=== PATIENT | female | born 1965 | race Caucasian/White ===

== ENCOUNTER 2016-11-05 20:01 | Emergency (ER) | payer OTHER ==
[2016-11-05 20:17] VITALS: BP 157/72; PULSE 92; TEMP 98.1; BMI 46.8
--- NOTE | 2016-11-05 21:04 | PDOC ---
History of Present Illness - History of Present Illness Initial Comments: 11/05/16 20:55 CHIEF COMPLAINT: laceration HISTORY OF PRESENT ILLNESS: 50 yo F with hx of DM, HTN and HLD presents to fast track with laceration to left foot. Patient reports she was cleaning her garage when a wine bottle fell and broke, and hit her ankle and cut it. PAST MEDICAL HISTORY: Denies past medical history FAMILY HISTORY: Denies SOCIAL HISTORY: Denies tobacco, alcohol, illicit drug use. SURGICAL HISTORY: Denies ALLERGIES: No known drug allergies REVIEW OF SYSTEMS General/Constitutional: Denies fever or chills. Cardiovascular: Denies chest pain or shortness of breath. Respiratory: Denies cough, wheezing, or hemoptysis. Musculoskeletal: Denies joint or muscle swelling or pain. Denies neck or back pain. Skin and breasts: Cut to left ankle. Denies rash or easy bruising. PHYSICAL EXAM General Appearance: Well-appearing, appropriately dressed. No apparent distress. HEENT: EOMI, PERRLA. No conjunctival pallor. No photophobia, scleral icterus. Respiratory/Chest: Lungs CTAB. Cardiovascular: RRR. S1, S2. Vascular Pulses: Dorsalis-Pedis (R): 2+, Dorsalis-Pedis (L): 2+ Musculoskeletal/Extremities: Normal inspection. FROM of all extremities, normal capillary refill. No tenderness to extremities, pedal edema, swelling, erythema or deformity. Integumentary: 5 cm laceration to medial left ankle. Appropriate color, dry, warm. No cyanosis, erythema, jaundice or rash Neurologic: field representatives director II-XII intact. Fully oriented, alert. Appropriate mood/affect. Motor strength 5/5. No appreciable EOM palsy, facial droop or sensory deficit. 11/05/16 22:09 <Shanti Gann - Last Filed: 11/07/16 13:54> <Earnest Calhoun - Last Filed: 11/08/16 19:39> - General Chief Complaint: Laceration Stated Complaint: LACERATION Time Seen by Provider: 11/05/16 20:49 Past History - Past Medical History Diabetes: Yes HTN: Yes Hypercholesterolemia: Yes - Immunization History Immunization Up to Date: Yes - Psycho/Social/Smoking Cessation Hx Anxiety: No Suicidal Ideation: No Smoking History: Never smoked Have you smoked in the past 12 months: No Information on smoking cessation initiated: No Hx Alcohol Use: No Drug/Substance Use Hx: No Substance Use Type: None <Shanti Gann - Last Filed: 11/07/16 13:54> <Earnest Calhoun - Last Filed: 11/08/16 19:39> - Past Medical History Allergies/Adverse Reactions: Allergies Allergy/AdvReac Type Severity Reaction Status Date / Time No Known Allergies Allergy Verified 11/05/16 20:11 Home Medications: Ambulatory Orders Benazepril/Hydrochlorothiazide [Benazepril-Hctz 20-12.5 mg Tab] 1 each PO DAILY 03/27/13 Metformin HCl [Glucophage -] 500 mg PO BID 03/27/13 Metoprolol Tartrate [Lopressor -] 25 mg PO DAILY 03/27/13 Simvastatin [Zocor] 20 mg PO HS 03/27/13 Oxycodone HCl/Acetaminophen [Percocet 5-325 mg Tablet] 1 - 2 tab PO Q4H PRN #24 tablet MDD 12 08/09/15 Cephalexin [Keflex] 500 mg PO BID #14 capsule 11/05/16 *Physical Exam - Vital Signs Last Vital Signs Temp Pulse Resp BP Pulse Ox 98.1 F 92 H 20 157/72 97 11/05/16 20:11 11/05/16 20:11 11/05/16 20:11 11/05/16 20:11 11/05/16 20:11 <Shanti Gann - Last Filed: 11/07/16 13:54> - Vital Signs Last Vital Signs Temp Pulse Resp BP Pulse Ox 98.1 F 92 H 20 157/72 97 11/05/16 20:11 11/05/16 20:11 11/05/16 20:11 11/05/16 20:11 11/05/16 20:11 <Earnest Calhoun - Last Filed: 11/08/16 19:39> Procedures - Laceration/Wound Repair Left Anterior Medial Ankle Wound Length: 5.0 to 7.5 cm Wound Explored: clean, no foreign body present Wound's Depth, Shape: superficial, linear Irrigated w/ Saline: Yes Betadine Prep: Yes Anesthesia: 1% Lidocaine Amount of Anesthetic (ccs): 2 Wound Debrided: minimal Wound Repaired With: Sutures Suture Size/Type: 3:0, nylon Number of Sutures: 8 Layer Closure: Yes Sterile Dressing Applied: Yes Splint Applied: No Sling Applied: No <Gianni Calhounson - Last Filed: 11/08/16 19:39> ED Treatment Course - RADIOLOGY Radiology Studies Ordered: Category Date Time Status ANKLE & FOOT-LEFT* [RAD] Stat Radiology 11/05/16 20:53 Ordered <SanjunaitaShanti - Last Filed: 11/07/16 13:54> - Medications Given in the ED: ED Medications Discontinued Medications Generic Name Dose Route Start Last Admin Trade Name Liu PRN Reason Stop Dose Admin Diphtheria/Tetanus/Acell Pertussis 0.5 ml 11/05/16 22:02 11/05/16 22:12 Boostrix - IM 11/05/16 22:03 0.5 ml .ONCE ONE Administration <Earnest Calhoun - Last Filed: 11/08/16 19:39> Medical Decision Making - Medical Decision Making 50 yo F presents to fast track with laceration to left medial stubbs. Full ROM to left leg, foot, and ankle. Pulses intact. -Tdap IM -laceration repair (performed by MD Calhoun, see procedure note) Advised patient of post laceration repair instructions and of signs and symptoms for return to ER. Patient verbalized understanding and agrees to plan. <Shanti Gann - Last Filed: 11/07/16 13:54> *DC/Admit/Observation/Transfer - Discharge Dispostion Admit: No <Shanti Gann - Last Filed: 11/07/16 13:54> <Earnest Calhoun - Last Filed: 11/08/16 19:39> Diagnosis at time of Disposition: Laceration of ankle Qualifiers: Encounter type: initial encounter Laterality: left Qualified Code(s): S91.012A - Laceration without foreign body, left ankle, initial encounter - Discharge Dispostion Disposition: HOME - Prescriptions Prescriptions: Cephalexin [Keflex] 500 mg PO BID #14 capsule - Referrals Referrals: Maurice Linton MD [Primary Care Provider] - - Patient Instructions Printed Discharge Instructions: DI for Laceration Repair Additional Instructions: Please take antibiotics as prescribed and complete the entire course of antibiotics. Please keep your ankle clean and dry for the next 24-48 hours. Return to fast track or go to your primary care provider in 10-14 days for suture removal. If you develop redness, swelling, or warmth to your ankle, or you experience fever, chills, nausea, vomiting, or diarrhea, please return to the ER immediately. Por favor, tome los antibiticos segn lo prescrito y complete el curso completo de los antibiticos. Por favor, mantenga lubin tobillo limpio y seco dany las siguientes 24-48 horas. Vuelva a la wilfredo de emergencia o vaya a Dr. Linton en 10-14 warren para la eliminacin de sutura. Si desarrolla enrojecimiento, hinchazn o calor en el tobillo, o siente fiebre, escalofros, n useas, vmitos o diarrea, por favor regrese inmediatamente a la wilfredo de emergencias. Print Language: MOLDOVAN
[2016-11-05] MEDS ORDERED: DIPHTH,PERTUSS(ACELL),TET 0.5 ML DISP.SYRIN IM ONE (22:02)
== END 2016-11-05 22:37 | disposition home or self-care (01) ==
LOC: JER 20:01 → JERFT 20:01
PROC: 3E0337Z Introduction of Electrolytic and Water Balance Substance into Peripheral Vein, Percutaneous Approach (ICD-10-PCS; principal; 2016-11-05)
DX: S91.012A Laceration without foreign body, left ankle, initial encounter (principal); W25.XXXA Contact with sharp glass, initial encounter; Y93.E9 Activity, other interior property and clothing maintenance; Y92.015 Private garage of single-family (private) house as the place of occurrence of the external cause; I10 Essential (primary) hypertension; E11.9 Type 2 diabetes mellitus without complications; E78.00 Pure hypercholesterolemia, unspecified; G30.9 Alzheimer's disease, unspecified; F02.80 Dementia in other diseases classified elsewhere, unspecified severity, without behavioral disturbance, psychotic disturbance, mood disturbance, and anxiety
CPT/HCPCS: 73610-TC-LT; 73630-TC-LT; 90715; 96360; 96361; 99281-25

== ENCOUNTER 2016-11-13 18:25 | Emergency (ER) | payer OTHER ==
[2016-11-13 18:41] VITALS: BP 161/97; PULSE 86; TEMP 98.1; BMI 43.9
--- NOTE | 2016-11-13 19:27 | PDOC ---
Suture Removal/Wound Check HPI - History of Present Illness Chief Complaint: Suture/Staple Removal(Here) Stated Complaint: STAPLE/SUTURE REMOVAL Time Seen by Provider: 11/13/16 18:54 History Source: Yes: Patient Exam Limitations: Yes: No Limitations Treated at: [facility] Date of Last ED visit: 11/05/16 - Previous ED Treatment Type of procedure performed on last visit: Yes: Laceration Repair Tetanus Immunization: Yes: Up to Date Antibiotics Prescribed: Yes Past History - Past Medical History Allergies/Adverse Reactions: Allergies No Known Allergies Allergy (Verified 11/13/16 18:38) Home Medications: Ambulatory Orders Benazepril/Hydrochlorothiazide [Benazepril-Hctz 20-12.5 mg Tab] 1 each PO DAILY 03/27/13 Metformin HCl [Glucophage -] 500 mg PO BID 03/27/13 Metoprolol Tartrate [Lopressor -] 25 mg PO DAILY 03/27/13 Simvastatin [Zocor] 20 mg PO HS 03/27/13 - Immunization History Immunizations Up to Date: Yes - Social History Smoking Status: Never smoked Suture Removal/Wound Check PE - Physical Exam Laceration/Wound Check Symptoms: reports: None Current Severity Level: None Maximum Severity Level: None Pain Localization: None *Review of Systems - Review of Systems Constitutional: No: Symptoms Reported Integumentary: Yes: Erythema (localized suture irritation. Wound edges are turned in. ), Other (no pain) Neurological: No: Symptoms reported, Paresthesia, Tingling, Tremors Hematologic/Lymphatic: No: Symptoms Reported All Other Systems: Reviewed and Negative Medical Decision Making - Medical Decision Making 11/13/16 19:30 8 sutures are removed from right medial ankle, there is localized suture irritation but there is no pustulant discharge wound edges were slightly turned in sutures removed wound is intact however I placed a thin layer of dermabond with steri strips because it is a high tension area. Patient told to leave area clean and dry. Area may open with high tension. Follow up as needed. *DC/Admit/Observation/Transfer Diagnosis at time of Disposition: Visit for suture removal - Discharge Dispostion Disposition: HOME Condition at time of disposition: Good Admit: No - Referrals Referrals: Maurice Linton MD [Primary Care Provider] - - Patient Instructions Additional Instructions: PLease keep area clean and dry for the next two days, take off band aid tomorrow. Please leave steri strips tape on until it falls off on its own. If area opens return to the ER. - Post Discharge Activity
== END 2016-11-13 19:45 | disposition home or self-care (01) ==
LOC: JERFT 18:25
DX: Z48.02 Encounter for removal of sutures (principal)
CPT/HCPCS: 99281-25

== ENCOUNTER 2016-11-17 17:35 | Emergency (ER) | payer OTHER ==
[2016-11-17 17:43] VITALS: BP 152/83; PULSE 90; TEMP 98.2; BMI 51.5
--- NOTE | 2016-11-17 18:18 | PDOC ---
*Physical Exam - Vital Signs Last Vital Signs Temp Pulse Resp BP Pulse Ox 98.2 F 90 18 152/83 100 11/17/16 17:40 11/17/16 17:40 11/17/16 17:40 11/17/16 17:40 11/17/16 17:40 - Physical Exam General Appearance: Yes: Appropriately Dressed, Apparent Distress Extremity: positive: Other (wound impoved from previous vist; applied steristrips; floyd applied) *DC/Admit/Observation/Transfer Diagnosis at time of Disposition: Encounter for wound re-check - Discharge Dispostion Disposition: HOME Condition at time of disposition: Stable Admit: No - Patient Instructions Additional Instructions: return in 3 days for reevaluation
== END 2016-11-17 18:21 | disposition home or self-care (01) ==
LOC: JERFT 17:35
DX: Z48.01 Encounter for change or removal of surgical wound dressing (principal)
CPT/HCPCS: 99281-25

== ENCOUNTER 2017-06-15 13:46 | Emergency (ER) | payer OTHER ==
[2017-06-15 13:52] VITALS: BMI 47.5
[2017-06-15] MEDS ORDERED: ONDANSETRON 4 MG/2 ML VIAL IVPB ONE (14:27)
[2017-06-15] MEDS ORDERED: MAG HYDROX/AL HYDROX/SIMETH 30 ML UNIT-DOSE CUP PO ONE (14:27)
[2017-06-15] MEDS ORDERED: MAG HYDROX/AL HYDROX/SIMETH 30 ML UNIT-DOSE CUP ONE (14:34)
[2017-06-15] MEDS ORDERED: ONDANSETRON 4 MG/2 ML VIAL ONE (14:35)
[2017-06-15 15:02] LABS: BASO % 0.5 % (0-2.0); EOS % 2.3 % (0-4.5); HEMATOCRIT 40.4 % (32.4-45.2); HEMOGLOBIN 13.9 GM/dL (10.7-15.3); LYMPH % 37.9 % (8-40); MCH 31.6 pg (25.7-33.7); MCHC 34.4 g/dl (32.0-36.0); MEAN CELL VOLUME 91.9 fl (80-96); MEAN PLT VOLUME 7.3 fl (7.5-11.1); MONO % 7.8 % (3.8-10.2); NEUT % 51.5 % (42.8-82.8); PLATELET COUNT 277 K/MM3 (134-434); RBC 4.39 M/mm3 (3.60-5.2); WHITE BLOOD COUNT 5.4 K/mm3 (4.0-10.0)
[2017-06-15 15:04] LABS: URINE APPEARANCE CLOUDY; URINE BILIRUBIN NEGATIVE (NEGATIVE); URINE BLOOD NEGATIVE (NEGATIVE); URINE COLOR YELLOW; URINE GLUCOSE (UA) NEGATIVE (NEGATIVE); URINE KETONE NEGATIVE (NEGATIVE); URINE LEUK ESTERASE NEGATIVE (NEGATIVE); URINE NITRITE NEGATIVE (NEGATIVE); URINE PROTEIN NEGATIVE (NEGATIVE); URINE UROBILINOGEN NEGATIVE mg/dL (0.2-1.0)
[2017-06-15] MEDS ORDERED: KETOROLAC TROMETHAMINE 15 MG/ML VIAL IVPUSH ONE (15:13)
[2017-06-15 15:26] LABS: ALBUMIN 3.5 g/dl (3.4-5.0); ANION GAP 10 (8-16); BILIRUBIN,TOTAL 0.3 mg/dL (0.2-1.0); BLOOD UREA NITROGEN 10 mg/dL (7-18); CALCIUM 8.4 mg/dL (8.5-10.1); CHLORIDE 105 mmol/L (98-107); CO2 28 mmol/L (21-32); CREATININE 0.5 mg/dL (0.55-1.02); GLUCOSE,RANDOM 102 mg/dL (74-106); POTASSIUM 3.8 mmol/L (3.5-5.1); SGOT/AST 36 U/L (15-37); SGPT/ALT 73 U/L (12-78); SODIUM 143 mmol/L (136-145); TOT PROT 7.3 g/dl (6.4-8.2)
[2017-06-15 15:28] LABS: ALK PHOS 107 U/L (45-117)
[2017-06-15] MEDS ORDERED: RANITIDINE HCL 150 MG TABLET (FP) PO ONE (15:35)
--- NOTE | 2017-06-15 15:35 | PDOC ---
Attending Attestation - Resident Resident Name: Danny Subramanian - ED Attending Attestation I have performed the following: I have examined & evaluated the patient, The case was reviewed & discussed with the resident, I agree w/resident's findings & plan, Exceptions are as noted - HPI HPI: 06/15/17 15:33 51-year-old female status post cholecystectomy presents to the ER with atraumatic right upper quadrant and epigastric pain associated with nausea for the past week. Patient denies chest pain/fever/chills/diarrhea/dysuria/ hematuria. - Physicial Exam PE: 06/15/17 15:33 Patient is awake and alert, afebrile, hemodynamically stable Patient is obese; Normocephalic, atraumatic PERRLA, EOMI, no scleral icterus mmm cta rrr sft, nondistended, mild right upper quadrant/epigastric tenderness to palpation without guarding rebound; bowel sounds are normal in all 4 quadrants No lower extremity edema - Medical Decision Making 06/15/17 15:34 51-year-old female status post cholecystectomy presents with atraumatic right upper quadrant and epigastric pain. Differential diagnoses includes fatty liver versus retained stone versus pancreatitis versus gastritis. We'll obtain CBC/CMP /lipase/right upper quadrant ultrasound. Will hydrate, we'll administer GI cocktail, will reassess.
--- NOTE | 2017-06-15 15:42 | PDOC ---
History of Present Illness - General Chief Complaint: Pain Stated Complaint: Abd pain, nausea Time Seen by Provider: 06/15/17 14:08 History Source: Patient Exam Limitations: Language Barrier - History of Present Illness Initial Comments: 06/15/17 15:44 51yo F with hx of DM, HTN and HLD, s/p cholecystectomy presents with RUQ pain, nausea, associated with meals for the past week. Denies vomiting, chest pain, dysuria, constipation, diarrhea. Past History - Past Medical History Allergies/Adverse Reactions: Allergies Allergy/AdvReac Type Severity Reaction Status Date / Time No Known Allergies Allergy Verified 06/15/17 13:52 Home Medications: Ambulatory Orders Benazepril HCl [Lotensin] 40 mg PO DAILY 06/15/17 Metformin HCl 500 mg PO DAILY 06/15/17 Omeprazole 20 mg PO DAILY 06/15/17 Simvastatin 40 mg PO DAILY 06/15/17 COPD: No Diabetes: Yes HTN: Yes Hypercholesterolemia: Yes - Immunization History Immunization Up to Date: Yes - Suicide/Smoking/Psychosocial Hx Smoking History: Never smoked Have you smoked in the past 12 months: No Information on smoking cessation initiated: No Hx Alcohol Use: No Drug/Substance Use Hx: No Substance Use Type: None Review of Systems - Review of Systems Able to Perform ROS?: Yes Is the patient limited Georgian proficient: No Constitutional: No: Symptoms Reported, Unintentional Wgt. Loss HEENTM: No: Symptoms Reported Respiratory: No: Symptoms reported Cardiac (ROS): No: Symptoms Reported ABD/GI: Yes: See HPI : No: Symptoms Reported Musculoskeletal: No: Symptoms Reported Integumentary: No: Symptoms Reported Neurological: No: Symptoms reported All Other Systems: Reviewed and Negative *Physical Exam - Vital Signs Last Vital Signs Temp Pulse Resp BP Pulse Ox 98.1 F 85 19 126/65 100 06/15/17 13:51 06/15/17 13:51 06/15/17 13:51 06/15/17 13:51 06/15/17 13:51 - Physical Exam General Appearance: Yes: Nourished, Appropriately Dressed, Mild Distress, Obese. No: Intoxicated HEENT: positive: EOMI, SONIDO, Normal ENT Inspection Respiratory/Chest: positive: Lungs Clear, Normal Breath Sounds. negative: Chest Tender, Respiratory Distress Cardiovascular: positive: Regular Rhythm, Regular Rate, S1, S2 Gastrointestinal/Abdominal: positive: Normal Bowel Sounds, Tender, Soft, Protuberent. negative: Guarding, Rebound Extremity: positive: Normal Capillary Refill, Normal Inspection, Normal Range of Motion Integumentary: positive: Normal Color, Dry, Warm Neurologic: positive: Fully Oriented, Alert, Normal Mood/Affect ED Treatment Course - LABORATORY CBC & Chemistry Diagram: 06/15/17 14:45 06/15/17 14:45 - ADDITIONAL ORDERS Additional order review: Laboratory Results 06/15/17 06/15/17 06/15/17 14:45 14:45 14:45 Sodium 143 Potassium 3.8 Chloride 105 Carbon Dioxide 28 Anion Gap 10 BUN 10 Creatinine 0.5 L Creat Clearance w eGFR > 60 Random Glucose 102 Calcium 8.4 L Total Bilirubin 0.3 D AST 36 ALT 73 Alkaline Phosphatase 107 Creatine Kinase 99 Troponin I 0.02 Total Protein 7.3 Albumin 3.5 Lipase 106 Urine Color Yellow Urine Appearance Cloudy Urine pH 8.0 D Ur Specific Pratt 1.017 Urine Protein Negative Urine Glucose (UA) Negative Urine Ketones Negative Urine Blood Negative Urine Nitrite Negative Urine Bilirubin Negative Urine Urobilinogen Negative Ur Leukocyte Esterase Negative 06/15/17 14:45 RBC 4.39 MCV 91.9 MCHC 34.4 RDW 13.0 MPV 7.3 L Neutrophils % 51.5 D Lymphocytes % 37.9 D Monocytes % 7.8 Eosinophils % 2.3 Basophils % 0.5 - RADIOLOGY Radiology Studies Ordered: Category Date Time Status ABDOMEN US -LIMITED [US] Stat Ultrasound 06/15/17 14:41 Ordered - Medications Given in the ED: ED Medications Discontinued Medications Generic Name Dose Route Start Last Admin Trade Name Freq PRN Reason Stop Dose Admin Al Hydroxide/Mg Hydroxide 30 ml 06/15/17 14:27 06/15/17 14:58 Mylanta Oral Suspension - PO 06/15/17 14:28 30 ml ONCE ONE Administration Ondansetron HCl 8 mg 06/15/17 14:27 06/15/17 14:58 Zofran Injection IVPB 06/15/17 14:28 8 mg ONCE ONE Administration Medical Decision Making - Medical Decision Making 06/15/17 15:57 51F with pmh of gallstones s/p cholecystectomy presenting with RUQ pain. Differential diagnoses includes fatty liver versus retained stone versus pancreatitis versus gastritis. We'll obtain CBC/CMP/lipase/right upper quadrant ultrasound. Will hydrate, we'll administer GI cocktail, will reassess. Labs within normal limits. 06/15/17 16:01 ULtrasound findings positive for fatty liver disease. Will d/c with follow up. *DC/Admit/Observation/Transfer Diagnosis at time of Disposition: Fatty liver disease, nonalcoholic - Discharge Dispostion Disposition: HOME Condition at time of disposition: Improved Admit: No - Referrals Referrals: Maurice Linton MD [Primary Care Provider] - - Patient Instructions Printed Discharge Instructions: Nonalcoholic Fatty Liver Disease Additional Instructions: Follow up appointment with Dr. Linton within 2-3 days. Come back to the ER for any new, worsening or concerning symptoms. Print Language: ENGLISH - Post Discharge Activity
[2017-06-15] MEDS ORDERED: RANITIDINE HCL 150 MG TABLET (FP) ONE (15:43)
[2017-06-15] MEDS ORDERED: KETOROLAC TROMETHAMINE 15 MG/ML VIAL ONE (15:43)
[2017-06-15 16:58] VITALS: BP 118/64; PULSE 75; TEMP 97.8
--- NOTE | 2017-06-15 22:04 | EKG ---
Test Reason : Blood Pressure : / mmHG Vent. Rate : 079 BPM Atrial Rate : 079 BPM P-R Int : 158 ms QRS Dur : 100 ms QT Int : 420 ms P-R-T Axes : 029 010 052 degrees QTc Int : 481 ms NORMAL SINUS RHYTHM NONSPECIFIC T WAVE ABNORMALITY PROLONGED QT ABNORMAL ECG WHEN COMPARED WITH ECG OF 14-JUL-2013 02:27, NO SIGNIFICANT CHANGE WAS FOUND Confirmed by WALTER CHEN MD ([id number]) on 06/15/2017 10:03:58 PM Referred By: Confirmed By:WALTER CHEN MD
== END 2017-06-15 16:58 | disposition home or self-care (01) ==
LOC: JER 13:46
PROC: 3E0333Z Introduction of Anti-inflammatory into Peripheral Vein, Percutaneous Approach (ICD-10-PCS; principal; 2017-06-15)
PROC: 3E033GC Introduction of Other Therapeutic Substance into Peripheral Vein, Percutaneous Approach (ICD-10-PCS; 2017-06-15)
DX: K76.0 Fatty (change of) liver, not elsewhere classified (principal); E11.9 Type 2 diabetes mellitus without complications; I10 Essential (primary) hypertension; E78.5 Hyperlipidemia, unspecified
CPT/HCPCS: 36415; 76705-TC; 80053; 81003; 82550; 83690; 84484; 85025; 93005; 93010; 99284-25

== ENCOUNTER 2018-06-23 03:46 | Emergency (ER) | payer OTHER ==
[2018-06-23 03:54] VITALS: BP 152/88; PULSE 73; TEMP 97.6; BMI 45.3
--- NOTE | 2018-06-23 04:01 | PDOC ---
History of Present Illness - General Chief Complaint: Psychiatric Stated Complaint: NOT SLEEPING X 4 DAYS Time Seen by Provider: 06/23/18 03:53 History Source: Patient Exam Limitations: No Limitations - History of Present Illness Initial Comments: 06/23/18 04:00 Pt is a 52yo F with PMH of NIDDM, HTN presenting to ED with complaints of inability to sleep for 4 days. Pt states that she has only been sleeping about 2 hours per day. She has had this problem since September of last year and was started on a medication in December. The last time she took the medication was last month. Pt states her PMD stopped prescribing the medication due to addictive side effects. Pt says she has difficulty falling asleep and staying asleep. She only drinks one cup of coffee in the morning. She denies fevers, chills, SOB, chest pain, syncope, palpitations, abdominal pain, n/v/d, back pain , changes in vision. No SI/HI PMD: Royer PMH: see hpi PSH: , fibroidectomy, cholecystectomy Meds: metformin, benazepril Allergies: nkda Social: no tobacco or illicit drug use. occasional alcohol use Past History - Past Medical History Allergies/Adverse Reactions: Allergies Allergy/AdvReac Type Severity Reaction Status Date / Time No Known Allergies Allergy Verified 06/23/18 03:53 Home Medications: Ambulatory Orders Benazepril HCl [Lotensin] 40 mg PO DAILY 06/15/17 Omeprazole 20 mg PO DAILY 06/15/17 Simvastatin 40 mg PO DAILY 06/15/17 metFORMIN HCL [Metformin HCl] 500 mg PO BID 06/15/17 COPD: No Diabetes: Yes HTN: Yes Hypercholesterolemia: Yes - Immunization History Immunization Up to Date: Yes - Suicide/Smoking/Psychosocial Hx Smoking History: Never smoked Have you smoked in the past 12 months: No Information on smoking cessation initiated: No Hx Alcohol Use: No Drug/Substance Use Hx: No Substance Use Type: None Review of Systems - Review of Systems Constitutional: No: Chills, Fever HEENTM: No: Symptoms Reported Respiratory: No: Symptoms reported Cardiac (ROS): No: Symptoms Reported ABD/GI: No: Symptoms Reported : No: Symptoms Reported Musculoskeletal: No: Symptoms Reported Integumentary: No: Symptoms Reported Neurological: No: Symptoms reported Psychiatric: Yes: Sleep Pattern Change *Physical Exam - Vital Signs Last Vital Signs Temp Pulse Resp BP Pulse Ox 97.6 F 73 20 152/88 99 06/23/18 03:53 06/23/18 03:53 06/23/18 03:53 06/23/18 03:53 06/23/18 03:53 - Physical Exam General Appearance: Yes: Appropriately Dressed, Obese. No: Apparent Distress HEENT: positive: EOMI, SONIDO, Normal ENT Inspection Neck: positive: Trachea midline, Supple Respiratory/Chest: positive: Lungs Clear, Normal Breath Sounds Cardiovascular: positive: Regular Rhythm, Regular Rate Vascular Pulses: Carotid (R): 2+, Carotid (L): 2+, Dorsalis-Pedis (R): 2+, Doralis-Pedis (L): 2+ Gastrointestinal/Abdominal: positive: Normal Bowel Sounds, Soft. negative: Tender Musculoskeletal: negative: CVA Tenderness Extremity: positive: Normal Capillary Refill, Pelvis Stable. negative: Pedal Edema, Swelling Integumentary: positive: Normal Color, Dry, Warm Neurologic: positive: geosciences professor II-XII NML intact, Fully Oriented, Alert, Normal Mood/ Affect, Normal Response, Motor Strength 5/5 Moderate Sedation - Procedure Monitoring Vital Signs: Procedure Monitoring Vital Signs Temperature 97.6 F 06/23/18 03:53 Pulse Rate 73 06/23/18 03:53 Respiratory Rate 20 06/23/18 03:53 Blood Pressure 152/88 06/23/18 03:53 O2 Sat by Pulse Oximetry (%) 99 06/23/18 03:53 ED Treatment Course - LABORATORY CBC & Chemistry Diagram: 06/23/18 03:52 06/23/18 03:52 Medical Decision Making - Medical Decision Making 06/23/18 04:13 Pt is a 52yo F with PMH of NIDDM, HTN presenting to ED with complaints of inability to sleep for 4 days. Pt states that she has only been sleeping about 2 hours per day. She has had this problem since September of last year and was started on a medication in December. The last time she took the medication was last month. Pt states her PMD stopped prescribing the medication due to addictive side effects. Pt says she has difficulty falling asleep and staying asleep. She only drinks one cup of coffee in the morning. She denies fevers, chills, SOB, chest pain, syncope, palpitations, abdominal pain, n/v/d, back pain , changes in vision. Vitals: wnl PE: benign, obese. pt has insomnia, was taking a medication but does not remember the name. -cbc, cmp, tsh. Will likely have pt see pmd and get referral to sleep clinic 06/23/18 05:03 labs wnl. Will give number to sleep clinic. Advised pt to try melatonin. Pt otherwise stable. will dc *DC/Admit/Observation/Transfer Diagnosis at time of Disposition: Difficulty sleeping - Discharge Dispostion Disposition: HOME Condition at time of disposition: Good Decision to Admit order: No - Referrals Referrals: Maurice Linton MD [Staff Physician] - - Patient Instructions Printed Discharge Instructions: Insomnia Additional Instructions: You were seen in the emergency room today for difficulty sleeping. I do not know why you have problems with sleep. I recommend making an appointment with Dr. Linton so that you can be referred to a sleep clinic. Or you can call You can try taking Melatonin. This can be found in the vitamin section in most stores or pharmacies Do not drink coffee or alcohol before going to bed. Make sure you are in a quiet and dark room. Stop eating 2 hours before you plan on sleeping. Come back to the emergency room if you have chest pain, pass out, have fever, or if any new concerning symptom develops. Thank you - Post Discharge Activity
[2018-06-23 04:13] LABS: BASO % 0.4 % (0-2.0); EOS % 2.6 % (0-4.5); HEMATOCRIT 38.9 % (32.4-45.2); HEMOGLOBIN 13.6 GM/dL (10.7-15.3); LYMPH % 34.4 % (8-40); MCH 32.3 pg (25.7-33.7); MCHC 34.9 g/dl (32.0-36.0); MEAN CELL VOLUME 92.5 fl (80-96); MEAN PLT VOLUME 7.4 fl (7.5-11.1); MONO % 7.6 % (3.8-10.2); PLATELET COUNT 286 K/MM3 (134-434); RBC 4.21 M/mm3 (3.60-5.2); RDW 12.8 % (11.6-15.6); WHITE BLOOD COUNT 6.7 K/mm3 (4.0-10.0)
[2018-06-23 04:49] LABS: ALBUMIN 3.4 g/dl (3.4-5.0); ALK PHOS 93 U/L (45-117); ANION GAP 5 MMOL/L (8-16); BILIRUBIN,TOTAL 0.2 mg/dL (0.2-1); BLOOD UREA NITROGEN 12 mg/dL (7-18); CALCIUM 8.3 mg/dL (8.5-10.1); CHLORIDE 110 mmol/L (98-107); CO2 25 mmol/L (21-32); CREATININE 0.4 mg/dL (0.55-1.3); GLUCOSE,RANDOM 109 mg/dL (74-106); SGOT/AST 16 U/L (15-37); SGPT/ALT 29 U/L (13-61); SODIUM 140 mmol/L (136-145)
--- NOTE | 2018-06-23 04:59 | PDOC ---
Attending Attestation - Resident Resident Name: Liz Denise - ED Attending Attestation I have performed the following: I have examined & evaluated the patient, The case was reviewed & discussed with the resident, I agree w/resident's findings & plan, Exceptions are as noted - HPI HPI: 06/23/18 05:18 52F pmh DM, HTN here with insomnia for 4 days. Patient states that the problem has been persistent for about a year. Her PCP prescribed medication several months ago but it was discontinued by PCP due to concern of addiction. Pt has not had medication for about a month. She states that over the last 4 days she has not been able to stay asleep for longer than 2 hours. No other complaints. - Physicial Exam PE: 06/23/18 05:20 Agree with exam as documented by resident - Medical Decision Making 06/23/18 05:20 Patient is not toxic appearing, has normal mental status, alertness f/u basic labs unremarkable labs f/u pcp
== END 2018-06-23 05:15 | disposition home or self-care (01) ==
LOC: JER 03:46
DX: G47.00 Insomnia, unspecified (principal); E11.9 Type 2 diabetes mellitus without complications; I10 Essential (primary) hypertension
CPT/HCPCS: 36415; 80053; 84443; 85025; 99282-25

== ENCOUNTER 2019-02-08 05:07 | Emergency (ER) | payer OTHER ==
[2019-02-08 05:24] VITALS: BMI 42.0
[2019-02-08] MEDS ORDERED: ACETAMINOPHEN 1000 MG/100 ML VIAL (NON FORMULARY) IVPB ONE (05:49)
[2019-02-08] MEDS ORDERED: ACETAMINOPHEN INJECTION 100 ML IVPB ONE (05:49)
--- NOTE | 2019-02-08 05:51 | PDOC ---
Attending Attestation - Resident Resident Name: Earnest Calhoun - ED Attending Attestation I have performed the following: I have examined & evaluated the patient, The case was reviewed & discussed with the resident, I agree w/resident's findings & plan - HPI HPI: 02/08/19 06:56 see resident hpi - Physicial Exam PE: 02/08/19 06:58 agree with resident exam - Medical Decision Making 02/08/19 06:57 53-year-old female with left flank and left leg pain with history of sciatica, no new trauma Patient given Solu-Medrol and morphine Due to severe level of pain, [facility] [place] [facility] as needed Otherwise neurovascularly intact
--- NOTE | 2019-02-08 05:54 | PDOC ---
History of Present Illness - General Chief Complaint: Pain, Acute Stated Complaint: LEG PAIN Time Seen by Provider: 02/08/19 05:48 - History of Present Illness Initial Comments: 02/08/19 05:50 53 yo F with h/o morbid obesity, HTN, HLD, DM, who p/w left leg pain. Patient reports 3 days of intermittent, crampy, left, calf pain, with no identifiable triggers or alleviators. Patient also endorses 3 days of intermittent left posterior hip pain radiating to posterior left thigh. Pain worse with supine position. Reports home Motrin use, with no improvement. Patient denies MYERS, vision change, palpitations, cough, wheezing, orthopena, PND, leg swelling, N/V , F,C, CP, SOB, urinary complaints, hematuria, BPR, abdominal pain, diarrhea, constipation, lightheadedness, weakness, sensory changes. Denies h/o DVT/PE, recent trauma or immobilization, hormone therapy. Past History - Past Medical History Allergies/Adverse Reactions: Allergies Allergy/AdvReac Type Severity Reaction Status Date / Time No Known Allergies Allergy Verified 02/08/19 05:22 Home Medications: Ambulatory Orders Benazepril HCl [Lotensin] 40 mg PO DAILY 06/15/17 Omeprazole 20 mg PO DAILY 06/15/17 Simvastatin 40 mg PO DAILY 06/15/17 metFORMIN HCL [Metformin HCl] 500 mg PO BID 06/15/17 COPD: No Diabetes: Yes GI Disorders: Yes (GERD) HTN: Yes Hypercholesterolemia: Yes Psychiatric Problems: Yes (Insomnia) - Immunization History Immunization Up to Date: Yes - Psycho Social/Smoking Cessation Hx Smoking History: Never smoked Have you smoked in the past 12 months: No Information on smoking cessation initiated: No Hx Alcohol Use: No Drug/Substance Use Hx: No Substance Use Type: None Review of Systems - Review of Systems Comments:: 02/08/19 05:51 GENERAL/CONSTITUTIONAL: No fever or chills. No weakness. HEAD, EYES, EARS, NOSE AND THROAT: No change in vision. No ear pain or discharge. No sore throat. CARDIOVASCULAR: No chest pain or shortness of breath RESPIRATORY: No cough, wheezing, or hemoptysis. GASTROINTESTINAL: No nausea, vomiting, diarrhea or constipation. GENITOURINARY: No dysuria, frequency, or change in urination. MUSCULOSKELETAL: + L calf pain, and posterior thigh pain. No joint or muscle swelling. No neck or back pain. SKIN: No rash NEUROLOGIC: No headache, vertigo, loss of consciousness, or change in strength/ sensation. ENDOCRINE: No increased thirst. No abnormal weight change HEMATOLOGIC/LYMPHATIC: No anemia, easy bleeding, or history of blood clots. ALLERGIC/IMMUNOLOGIC: No hives or skin allergy. *Physical Exam - Vital Signs Last Vital Signs Temp Pulse Resp BP Pulse Ox 98.3 F 78 20 147/86 96 02/08/19 05:22 02/08/19 05:22 02/08/19 05:22 02/08/19 05:22 02/08/19 05:22 - Physical Exam Comments: 02/08/19 05:52 GENERAL: Awake, alert, and fully oriented, in no acute distress HEAD: No signs of trauma, normocephalic, atraumatic EYES: PERRLA, EOMI, sclera anicteric, conjunctiva clear ENT: Auricles normal inspection, hearing grossly normal, nares patent, oropharynx clear without exudates. Moist mucosa NECK: Normal ROM, supple, no lymphadenopathy, JVD, or masses LUNGS: No distress, speaks full sentences, clear to auscultation bilaterally HEART: Regular rate and rhythm, normal S1 and S2, no murmurs, rubs or gallops, peripheral pulses normal and equal bilaterally. ABDOMEN: Soft, nontender, normoactive bowel sounds. No guarding, no rebound. No masses EXTREMITIES : + L calf ttp. Normal inspection, Normal range of motion, no edema. No clubbing or cyanosis 2 + symmetric DP, and PT pulses. NEUROLOGICAL: Cranial nerves II through XII grossly intact. Normal speech, normal gait, no focal sensorimotor deficits. Neg straight leg raise test. Back with absent ttp, stepoff or bony SKIN: Warm, Dry, normal turgor, no rashes or lesions noted Medical Decision Making - Medical Decision Making 02/08/19 05:53 53 yo F with h/o morbid obesity, HTN, HLD, DM, sciatica, who p/w left leg pain. Exam notable for left calf ttp. Vitals wnl, AF, A&Ox3. LLE neurovascuarly intact. Absent evidence of arterial occlusion. R/o DVT. Hip RAD r/o dislocation vs. degeneration. Will provide analgesic control, and reassess. Ed Course: 02/08/19 06:39 Pt. stable pain improved following Tylenol, Morphine, Salumedrol Endorsed to day team Pending Duplex LLE, and Hip RAD Discharge - Discharge Information Problems reviewed: Yes Clinical Impression/Diagnosis: Pain of left calf Condition: Stable - Follow up/Referral Referrals: Maurice Linton MD [Primary Care Provider] - - Patient Discharge Instructions Additional Instructions: Please return to the emergency department with any new or worsening symptoms or concerns. Please follow up with your primary care physician within 72 hours. - Post Discharge Activity
[2019-02-08] MEDS ORDERED: KETOROLAC TROMETHAMINE 30 MG/1 ML VIAL IVPUSH ONE (06:24)
[2019-02-08] MEDS ORDERED: KETOROLAC TROMETHAMINE 30 MG/1 ML VIAL ONE (06:30)
[2019-02-08] MEDS ORDERED: morphine CARPU-JECT 4 MG/1 ML DISP.SYRIN IVPUSH ONE (06:35)
[2019-02-08] MEDS ORDERED: methylPREDNISolone NA SUCC 125 MG/2 ML VIAL IVPUSH ONE (06:36)
[2019-02-08] MEDS ORDERED: methylPREDNISolone NA SUCC 125 MG/2 ML VIAL ONE (06:38)
[2019-02-08] MEDS ORDERED: morphine SULFATE 4 MG/ML VIAL ONE (06:38)
--- NOTE | 2019-02-08 07:57 | PDOC ---
*Physical Exam - Vital Signs Last Vital Signs Temp Pulse Resp BP Pulse Ox 98.3 F 79 20 147/83 96 02/08/19 05:22 02/08/19 06:40 02/08/19 05:22 02/08/19 06:40 02/08/19 05:22 ED Treatment Course - ADDITIONAL ORDERS Additional order review: Laboratory Results 02/08/19 06:50 Urine HCG, Qual Negative - Medications Given in the ED: ED Medications Discontinued Medications Generic Name Dose Route Start Last Admin Trade Name Liu PRN Reason Stop Dose Admin Acetaminophen 1,000 mg 02/08/19 05:49 02/08/19 05:52 Ofirmev Injection - IVPB 02/08/19 05:50 1,000 mg ONCE ONE Administration Ketorolac Tromethamine 30 mg 02/08/19 06:24 02/08/19 06:42 Toradol Injection - IVPUSH 02/08/19 06:25 Not Given ONCE ONE Methylprednisolone Sodium Succinate 125 mg 02/08/19 06:36 02/08/19 06:49 Solu-Medrol - IVPUSH 02/08/19 06:37 125 mg ONCE ONE Administration Morphine Sulfate 4 mg 02/08/19 06:35 02/08/19 06:49 Morphine Injection - IVPUSH 02/08/19 06:36 4 mg ONCE ONE Administration Medical Decision Making - Medical Decision Making 02/08/19 07:[address] Calhoun. Patient is a 53 yo female w/ pmh of obesity, HTN, HLD, DM, who presents for evaluation of exacerbation of LLE pain over the last 3 days. Patient took motrin at home w/out improvement of symptoms. Currently pending LLE doppler and hip XR for further evaluation. 02/08/19 10:50 XR Hip negative for acute process. Patient ambulating without difficulty and reporting improvement of pain. US pending at this time. 02/08/19 11:18 US negative. No concern for acute process at this time and discharging to home for further outpatient follow-up. Discharge - Discharge Information Problems reviewed: Yes Clinical Impression/Diagnosis: Pain of left calf, Leg pain, left Condition: Stable Disposition: HOME - Additional Discharge Information Prescriptions: Naproxen 500 mg PO BID PRN #14 tablet PRN Reason: Pain - Follow up/Referral Referrals: Maurice Linton MD [Primary Care Provider] - - Patient Discharge Instructions Patient Printed Discharge Instructions: DI for Leg Pain Additional Instructions: You were evaluated today in the ER for your leg pain. We performed Xray and Ultrasound which were both normal. Your pain improved with medications and we sent a prescription to your pharmacy for further pain control. Take all medications as written. No concerning findings were found and we believe you are safe for discharge at this time. Follow-up with primary care provider for further evaluation later this week. Return to ER if any further exacerbation of leg pain, fever, chills, or other concerning symptoms. - Post Discharge Activity
[2019-02-08 08:03] LABS: EPI CELLS 0.5 /HPF (0-5/HPF); HYALINE CASTS 0 /lpf (0-8); URINE APPEARANCE TURBID; URINE BACTERIA 22.7 /hpf (NEGATIVE); URINE BILIRUBIN NEGATIVE (NEGATIVE); URINE COLOR YELLOW; URINE GLUCOSE (UA) NEGATIVE (NEGATIVE); URINE KETONE NEGATIVE (NEGATIVE); URINE LEUK ESTERASE NEGATIVE (NEGATIVE); URINE NITRITE NEGATIVE (NEGATIVE); URINE PROTEIN 2+ (NEGATIVE); URINE RBC 6 /hpf (0-4); URINE UROBILINOGEN 0.2 mg/dL (0.2-1.0); URINE WBC 0 /hpf (0-5)
[2019-02-08] MEDS ORDERED: IBUPROFEN 600 MG TABLET (FP) PO ONE (09:55)
[2019-02-08 11:23] VITALS: BP 138/78; PULSE 80; TEMP 98
== END 2019-02-08 11:23 | disposition home or self-care (01) ==
LOC: JER 05:07
PROC: 3E033NZ Introduction of Analgesics, Hypnotics, Sedatives into Peripheral Vein, Percutaneous Approach (ICD-10-PCS; principal; 2019-02-08)
PROC: 3E033GC Introduction of Other Therapeutic Substance into Peripheral Vein, Percutaneous Approach (ICD-10-PCS; 2019-02-08)
PROC: 3E033NZ Introduction of Analgesics, Hypnotics, Sedatives into Peripheral Vein, Percutaneous Approach (ICD-10-PCS; 2019-02-08)
DX: M79.622 Pain in left upper arm (principal); I10 Essential (primary) hypertension; E78.5 Hyperlipidemia, unspecified; E11.9 Type 2 diabetes mellitus without complications; K21.9 Gastro-esophageal reflux disease without esophagitis
CPT/HCPCS: 73523-TC-FY; 81003; 84703; 93971-TC; 99282-25; J0131

== ENCOUNTER 2020-07-04 16:43 | Emergency (ER) | payer OTHER ==
[2020-07-04 16:55] VITALS: TEMP 98.4; BMI 45.7
[2020-07-04] MEDS ORDERED: ACETAMINOPHEN 1000 MG/100 ML VIAL (NON FORMULARY) IVPB ONE (18:51)
[2020-07-04] MEDS ORDERED: MAG HYDROX/AL HYDROX/SIMETH 30 ML UNIT-DOSE CUP PO ONE (18:52)
[2020-07-04] MEDS ORDERED: LIDOCAINE VISCOUS 2% ORAL/TOP 20 ML UNIT-DOSE CUP MM ONE (18:52)
[2020-07-04] MEDS ORDERED: FAMOTIDINE 20 MG/50 ML IVPB 20 MG/50 ML MG IVPB ONE ×2 (18:52→19:21)
[2020-07-04] MEDS ORDERED: ACETAMINOPHEN INJECTION 100 ML IVPB ONE (19:21)
[2020-07-04] MEDS ORDERED: MAG HYDROX/AL HYDROX/SIMETH 30 ML UNIT-DOSE CUP ONE (19:21)
[2020-07-04] MEDS ORDERED: LIDOCAINE VISCOUS 2% ORAL/TOP 20 ML UNIT-DOSE CUP ONE (19:21)
[2020-07-04 20:22] LABS: BASO % 0.4 % (0-2.0); EOS % 1.8 % (0-4.5); HEMATOCRIT 40.4 % (32.4-45.2); HEMOGLOBIN 13.6 GM/dL (10.7-15.3); LYMPH % 25.6 % (8-40); MCH 31.3 pg (25.7-33.7); MCHC 33.7 g/dl (32.0-36.0); MEAN PLT VOLUME 8.6 fl (7.5-11.1); MONO % 7.4 % (3.8-10.2); NEUT % 64.8 % (42.8-82.8); PLATELET COUNT 254 K/MM3 (134-434); RBC 4.34 M/mm3 (3.60-5.2); RDW 13.9 % (11.6-15.6); WHITE BLOOD COUNT 7.5 K/mm3 (4.0-10.0)
[2020-07-04 20:39] LABS: POTASSIUM 3.7 mmol/L (3.5-5.1)
[2020-07-04 20:41] LABS: ALBUMIN 3.6 g/dl (3.4-5.0); CALCIUM 8.9 mg/dL (8.5-10.1)
[2020-07-04 20:42] LABS: BLOOD UREA NITROGEN 8.4 mg/dL (7-18)
[2020-07-04 20:45] LABS: CREATININE 0.4 mg/dL (0.55-1.3)
[2020-07-04 20:46] LABS: BILIRUBIN,TOTAL 0.6 mg/dL (0.2-1); TOT PROT 7.2 g/dl (6.4-8.2)
[2020-07-04 22:35] VITALS: BP 160/81; PULSE 80
== END 2020-07-04 22:35 | disposition home or self-care (01) ==
LOC: JER 16:43
PROC: 3E0333Z Introduction of Anti-inflammatory into Peripheral Vein, Percutaneous Approach (ICD-10-PCS; principal; 2020-07-04)
PROC: 3E033GC Introduction of Other Therapeutic Substance into Peripheral Vein, Percutaneous Approach (ICD-10-PCS; 2020-07-04)
DX: R10.13 Epigastric pain (principal)
CPT/HCPCS: 36415; 80053; 82550; 83690; 84484; 85025; 93005; 93010; 99284-25; J0131

== ENCOUNTER 2020-08-07 22:47 | Emergency (ER) | payer OTHER ==
[2020-08-07 22:59] VITALS: TEMP 98.6; BMI 43.9
[2020-08-08] MEDS ORDERED: ACETAMINOPHEN 325 MG TABLET (FP) PO ONE (00:10)
[2020-08-08] MEDS ORDERED: MAG HYDROX/AL HYDROX/SIMETH 30 ML UNIT-DOSE CUP PO ONE (00:10)
[2020-08-08] MEDS ORDERED: MAG HYDROX/AL HYDROX/SIMETH 30 ML UNIT-DOSE CUP ONE (00:25)
[2020-08-08] MEDS ORDERED: ACETAMINOPHEN 325 MG TABLET (FP) ONE (00:25)
[2020-08-08 01:01] LABS: EPI CELLS >36 /uL (0-25.1); HYALINE CASTS 17 /uL (0-3.1); URINE APPEARANCE CLOUDY; URINE BILIRUBIN NEGATIVE (NEGATIVE); URINE COLOR ORANGE; URINE GLUCOSE (UA) NEGATIVE (NEGATIVE); URINE KETONE NEGATIVE (NEGATIVE); URINE LEUK ESTERASE 3+ (NEGATIVE); URINE NITRITE POSITIVE (NEGATIVE); URINE PROTEIN 3+ (NEGATIVE); URINE WBC 468 /uL (0-25.8)
[2020-08-08] MEDS ORDERED: NITROFURANTOIN MACROCRYSTAL 50 MG CAPSULE (FP) ONE (01:26)
[2020-08-08] MEDS ORDERED: NITROFURANTOIN MACROCRYSTAL 50 MG CAPSULE (FP) PO SCH (01:30)
[2020-08-08 01:36] VITALS: BP 148/79; PULSE 92
[2020-08-08 03:08] LABS: URINE RBC 469 /uL (0-23.9)
== END 2020-08-08 01:38 | disposition home or self-care (01) ==
LOC: JER 22:47
DX: R30.0 Dysuria (principal)
CPT/HCPCS: 81003; 82962; 87086; 99283-25

== ENCOUNTER 2020-08-25 08:23 | Emergency (ER) | payer OTHER ==
[2020-08-25 08:28] VITALS: BMI 43.9
[2020-08-25] MEDS ORDERED: SODIUM CHLORIDE 1,000 ML IV STA (08:59)
[2020-08-25] MEDS ORDERED: FAMOTIDINE 20 MG/50 ML IVPB 20 MG/50 ML MG IVPB ONE ×2 (08:59→09:14)
[2020-08-25] MEDS ORDERED: DICYCLOMINE HCL 10 MG CAPSULE PO ONE (08:59)
[2020-08-25] MEDS ORDERED: ACETAMINOPHEN 1000 MG/100 ML BAG IVPB ONE (08:59)
[2020-08-25] MEDS ORDERED: ACETAMINOPHEN INJECTION 100 ML IVPB ONE (09:13)
[2020-08-25] MEDS ORDERED: DICYCLOMINE HCL 10 MG CAPSULE ONE (09:13)
[2020-08-25 09:32] LABS: BASO % 0.4 % (0-2.0); EOS % 2.4 % (0-4.5); HEMOGLOBIN 13.4 GM/dL (10.7-15.3); LYMPH % 27.6 % (8-40); MCH 31.2 pg (25.7-33.7); MCHC 33.6 g/dl (32.0-36.0); MEAN CELL VOLUME 92.8 fl (80-96); MEAN PLT VOLUME 8.3 fl (7.5-11.1); NEUT % 60.6 % (42.8-82.8); PLATELET COUNT 260 K/MM3 (134-434); RBC 4.31 M/mm3 (3.60-5.2); RDW 13.9 % (11.6-15.6); WHITE BLOOD COUNT 6.2 K/mm3 (4.0-10.0)
[2020-08-25 09:47] LABS: URINE APPEARANCE CLEAR; URINE BILIRUBIN NEGATIVE (NEGATIVE); URINE COLOR YELLOW; URINE GLUCOSE (UA) NEGATIVE (NEGATIVE); URINE KETONE NEGATIVE (NEGATIVE); URINE LEUK ESTERASE NEGATIVE (NEGATIVE); URINE NITRITE NEGATIVE (NEGATIVE); URINE PROTEIN TRACE (NEGATIVE); URINE UROBILINOGEN 0.2 mg/dL (0.2-1.0)
[2020-08-25 10:13] LABS: ALBUMIN 3.4 g/dl (3.4-5.0); BLOOD UREA NITROGEN 14.6 mg/dL (7-18); CALCIUM 8.9 mg/dL (8.5-10.1)
[2020-08-25 10:17] LABS: BILIRUBIN,TOTAL 0.4 mg/dL (0.2-1); CREATININE 0.5 mg/dL (0.55-1.3); TOT PROT 7.3 g/dl (6.4-8.2)
[2020-08-25 14:13] VITALS: BP 136/80; PULSE 69; TEMP 98
== END 2020-08-25 14:14 | disposition home or self-care (01) ==
LOC: JER 08:23
PROC: 3E0333Z Introduction of Anti-inflammatory into Peripheral Vein, Percutaneous Approach (ICD-10-PCS; principal; 2020-08-25)
PROC: 3E033GC Introduction of Other Therapeutic Substance into Peripheral Vein, Percutaneous Approach (ICD-10-PCS; 2020-08-25)
PROC: 3E0337Z Introduction of Electrolytic and Water Balance Substance into Peripheral Vein, Percutaneous Approach (ICD-10-PCS; 2020-08-25)
DX: R10.13 Epigastric pain (principal); K29.00 Acute gastritis without bleeding; K59.00 Constipation, unspecified
CPT/HCPCS: 36415; 74019-TC-FY; 74177-TC; 76705-TC; 80053; 81003; 83690; 85025; 87086; 99285-25; J0131; Q9967

== ENCOUNTER 2020-09-11 19:18 | Observation (INO) | payer OTHER ==
[2020-09-11] MEDS ORDERED: MAG HYDROX/AL HYDROX/SIMETH -MYLANTA- ORAL SUSPENSION PO ONE (19:59)
[2020-09-11] MEDS ORDERED: FAMOTIDINE 20 MG/50 ML IVPB 20 MG/50 ML MG IVPB ONE ×2 (19:59→20:11)
[2020-09-11] MEDS ORDERED: ONDANSETRON 4 MG/2 ML VIAL IVPUSH ONE (19:59)
[2020-09-11] MEDS ORDERED: LIDOCAINE VISCOUS 2% ORAL/TOP 20 ML UNIT-DOSE CUP MM ONE (19:59)
[2020-09-11] MEDS ORDERED: LIDOCAINE VISCOUS 2% ORAL/TOP 20 ML UNIT-DOSE CUP ONE (20:10)
[2020-09-11] MEDS ORDERED: MAG HYDROX/AL HYDROX/SIMETH 30 ML UNIT-DOSE CUP ONE (20:10)
[2020-09-11] MEDS ORDERED: ONDANSETRON 4 MG/2 ML VIAL ONE (20:11)
[2020-09-11 20:38] LABS: BASO % 0.7 % (0-2.0); EOS % 1.3 % (0-4.5); HEMATOCRIT 42.8 % (32.4-45.2); HEMOGLOBIN 13.9 GM/dL (10.7-15.3); LYMPH % 33.2 % (8-40); MCH 30.5 pg (25.7-33.7); MCHC 32.5 g/dl (32.0-36.0); MEAN CELL VOLUME 93.9 fl (80-96); MEAN PLT VOLUME 8.1 fl (7.5-11.1); MONO % 9.2 % (3.8-10.2); NEUT % 55.6 % (42.8-82.8); PLATELET COUNT 255 K/MM3 (134-434); RBC 4.56 M/mm3 (3.60-5.2); RDW 14.7 % (11.6-15.6); WHITE BLOOD COUNT 7.3 K/mm3 (4.0-10.0)
[2020-09-11] MEDS ORDERED: ACETAMINOPHEN 1000 MG/100 ML VIAL (NON FORMULARY) IVPB ONE (20:54)
[2020-09-11] MEDS ORDERED: ACETAMINOPHEN INJECTION 100 ML IVPB ONE (20:56)
[2020-09-11 21:05] LABS: ALBUMIN 3.6 g/dl (3.4-5.0); BLOOD UREA NITROGEN 16.5 mg/dL (7-18); CALCIUM 9.1 mg/dL (8.5-10.1); MAGNESIUM 2.2 mg/dL (1.8-2.4)
[2020-09-11 21:08] LABS: CREATININE 0.8 mg/dL (0.55-1.3)
[2020-09-11 21:09] LABS: BILIRUBIN,TOTAL 0.7 mg/dL (0.2-1)
[2020-09-11 21:10] LABS: TOT PROT 7.7 g/dl (6.4-8.2)
[2020-09-11] MEDS ORDERED: ASPIRIN 81 MG CHEWABLE TABLETS PO ONE (21:38)
[2020-09-11] MEDS ORDERED: ASPIRIN 81 MG CHEWABLE TABLETS ONE (21:47)
[2020-09-11] MEDS ORDERED: MORPHINE SULFATE 2 MG/ML VIAL IVPUSH ONE (22:42)
[2020-09-11] MEDS ORDERED: POLYETHYLENE GLYCOL 3350 119 GM BTL PO ONE (22:42)
[2020-09-11] MEDS ORDERED: DOCUSATE SODIUM 100 MG CAPSULE (FP) PO ONE ×2 (22:42→23:09)
[2020-09-11] MEDS ORDERED: MORPHINE SULFATE 2 MG/ML VIAL ONE (23:08)
[2020-09-11] MEDS ORDERED: POLYETHYLENE GLYCOL 3350 119 GM BTL PO PRN (23:11)
[2020-09-12] MEDS ORDERED: PANTOPRAZOLE SODIUM 40 MG VIAL ONE (00:34)
[2020-09-12] MEDS: PANTOPRAZOLE SODIUM 40 MG VIAL IVPUSH SCH ×3 (00:40→21:01)
[2020-09-12] MEDS: INSULIN SLIDING SCALE (NOVOLOG) 1 VIAL SQ SCH ×4 (06:53→21:11)
[2020-09-12 06:57] LABS: HEMATOCRIT 40.9 % (32.4-45.2); HEMOGLOBIN 13.4 GM/dL (10.7-15.3); MCHC 32.7 g/dl (32.0-36.0); MEAN CELL VOLUME 94.7 fl (80-96); MEAN PLT VOLUME 8.6 fl (7.5-11.1); PLATELET COUNT 233 K/MM3 (134-434); RBC 4.32 M/mm3 (3.60-5.2); RDW 14.5 % (11.6-15.6); WHITE BLOOD COUNT 6.5 K/mm3 (4.0-10.0)
[2020-09-12] MEDS ORDERED: INSULIN SLIDING SCALE (NOVOLOG) 1 VIAL SQ ONE (06:57)
[2020-09-12 07:27] LABS: CALCIUM 8.8 mg/dL (8.5-10.1)
[2020-09-12 07:28] LABS: ALBUMIN 3.3 g/dl (3.4-5.0); MAGNESIUM 2.5 mg/dL (1.8-2.4)
[2020-09-12 07:31] LABS: CREATININE 0.6 mg/dL (0.55-1.3); PHOSPHOROUS 5.9 mg/dL (2.5-4.9)
[2020-09-12 07:32] LABS: BILIRUBIN,TOTAL 0.7 mg/dL (0.2-1); TOT PROT 6.9 g/dl (6.4-8.2)
[2020-09-12 09:18] LABS: EPI CELLS 51.7 /uL (0-25.1); HYALINE CASTS 6.67 /uL (0-3.1); URINE APPEARANCE Clear; URINE BACTERIA 771.4 /uL (0-1359); URINE BILIRUBIN Negative (NEGATIVE); URINE COLOR Yellow; URINE GLUCOSE (UA) Negative (NEGATIVE); URINE KETONE Negative (NEGATIVE); URINE LEUK ESTERASE Negative (NEGATIVE); URINE NITRITE Negative (NEGATIVE); URINE PROTEIN 3+ (NEGATIVE); URINE RBC 13.7 /uL (0-23.9); URINE UROBILINOGEN 0.2 mg/dL (0.2-1.0); URINE WBC 18.3 /uL (0-25.8)
[2020-09-12] MEDS: DOCUSATE SODIUM 100 MG CAPSULE (FP) PO SCH ×2 (09:53→21:01)
[2020-09-12] MEDS: ENOXAPARIN NA (PORCINE) 40 MG/0.4 ML DISP.SYRIN SQ SCH ×2 (09:54→21:02)
[2020-09-12] MEDS: POLYETHYLENE GLYCOL 3350 119 GM BTL PO SCH ×2 (09:55→21:02)
[2020-09-12] MEDS ORDERED: ENOXAPARIN NA (PORCINE) 40 MG/0.4 ML DISP.SYRIN SQ SCH (10:00)
[2020-09-12] MEDS ORDERED: metFORMIN HCL 500 MG TABLET (FP) PO SCH (10:00)
[2020-09-12] MEDS ORDERED: LISINOPRIL 20 MG TABLET PO SCH (10:00)
[2020-09-12] MEDS ORDERED: PATIENT'S OWN MEDICATION (NON-FORMULARY) (Benazepril Hcl [Benazepril Hcl] 20 MG Tablet) PO SCH (10:00)
[2020-09-12 10:35] LABS: URINE RBC 10.2 /uL (0-23.9); URINE WBC 5.6 /uL (0-25.8)
[2020-09-12 10:36] LABS: EPI CELLS 18.6 /uL (0-25.1); HYALINE CASTS 1.02 /uL (0-3.1); URINE BACTERIA 198.8 /uL (0-1359)
[2020-09-12 10:38] LABS: PH,URINE 5.5 (5.0-8.0); URINE APPEARANCE CLEAR; URINE BILIRUBIN NEGATIVE (NEGATIVE); URINE COLOR YELLOW; URINE GLUCOSE (UA) NEGATIVE (NEGATIVE); URINE KETONE NEGATIVE (NEGATIVE); URINE PROTEIN 30 (NEGATIVE)
[2020-09-12 10:39] LABS: URINE LEUK ESTERASE NEGATIVE (NEGATIVE); URINE NITRITE NEGATIVE (NEGATIVE)
[2020-09-12] MEDS: ASPIRIN 81 MG CHEWABLE TABLETS PO SCH (14:51)
[2020-09-12] MEDS: metoPROLOL SUCCINATE 25 MG TAB.SR.24H (FP) PO SCH (14:51)
[2020-09-12] MEDS: ATORVASTATIN CA 20 MG TABLET (FP) PO SCH (21:01)
[2020-09-12] MEDS ORDERED: MELATONIN 5 MG TABLETS PO ONE (23:58)
[2020-09-13] MEDS: ACETAMINOPHEN 325 MG TABLET (FP) PO PRN (00:05)
[2020-09-13] MEDS: PANTOPRAZOLE SODIUM 40 MG VIAL IVPUSH SCH ×2 (01:24→09:12)
[2020-09-13] MEDS: INSULIN SLIDING SCALE (NOVOLOG) 1 VIAL SQ SCH ×4 (06:19→21:10)
[2020-09-13 06:43] LABS: HEMATOCRIT 41.3 % (32.4-45.2); HEMOGLOBIN 13.3 GM/dL (10.7-15.3); MCH 30.6 pg (25.7-33.7); MCHC 32.2 g/dl (32.0-36.0); MEAN CELL VOLUME 94.9 fl (80-96); MEAN PLT VOLUME 8.8 fl (7.5-11.1); PLATELET COUNT 234 K/MM3 (134-434); RBC 4.35 M/mm3 (3.60-5.2); RDW 14.5 % (11.6-15.6); WHITE BLOOD COUNT 7.1 K/mm3 (4.0-10.0)
[2020-09-13 07:03] LABS: CALCIUM 8.9 mg/dL (8.5-10.1)
[2020-09-13 07:05] LABS: BLOOD UREA NITROGEN 20.3 mg/dL (7-18)
[2020-09-13 07:07] LABS: ALBUMIN 3.4 g/dl (3.4-5.0)
[2020-09-13 07:10] LABS: BILIRUBIN,TOTAL 0.5 mg/dL (0.2-1); CREATININE 0.6 mg/dL (0.55-1.3); TOT PROT 7.3 g/dl (6.4-8.2)
[2020-09-13] MEDS: DOCUSATE SODIUM 100 MG CAPSULE (FP) PO SCH ×2 (09:10→21:05)
[2020-09-13] MEDS: ASPIRIN 81 MG CHEWABLE TABLETS PO SCH (09:10)
[2020-09-13] MEDS: metoPROLOL SUCCINATE 25 MG TAB.SR.24H (FP) PO SCH (09:10)
[2020-09-13] MEDS: POLYETHYLENE GLYCOL 3350 119 GM BTL PO SCH ×2 (09:11→21:07)
[2020-09-13] MEDS: ENOXAPARIN NA (PORCINE) 40 MG/0.4 ML DISP.SYRIN SQ SCH ×2 (09:11→21:06)
[2020-09-13] MEDS ORDERED: VALSARTAN 80 MG TABLET PO SCH (10:00)
[2020-09-13] MEDS ORDERED: CALCIUM CARBONATE 650 MG TABLET PO PRN (11:00)
[2020-09-13] MEDS: SPIRONOLACTONE 25 MG TABLET PO SCH (11:13)
[2020-09-13] MEDS: FAMOTIDINE 20 MG TABLET PO SCH ×2 (11:13→21:06)
[2020-09-13] MEDS: BISACODYL 10 MG SUPP.RECT PR ONE ×2 (16:37→18:30)
[2020-09-13] MEDS: FUROSEMIDE 40 MG/4 ML INJECTABLE VIAL IVPUSH SCH (18:04)
[2020-09-13] MEDS ORDERED: TRIMETHOBENZAMIDE HCL 300 MG CAPSULE PO ONE (19:19)
[2020-09-13] MEDS ORDERED: PT OWN MED DRAWER 7, Y5N ONE ×2 (20:08→21:01)
[2020-09-13] MEDS: ATORVASTATIN CA 20 MG TABLET (FP) PO SCH (21:06)
[2020-09-14 06:23] LABS: HEMATOCRIT 42.6 % (32.4-45.2); HEMOGLOBIN 14.1 GM/dL (10.7-15.3); MCH 31.1 pg (25.7-33.7); MEAN CELL VOLUME 94.3 fl (80-96); MEAN PLT VOLUME 8.7 fl (7.5-11.1); PLATELET COUNT 230 K/MM3 (134-434); RBC 4.52 M/mm3 (3.60-5.2); RDW 14.2 % (11.6-15.6); WHITE BLOOD COUNT 6.8 K/mm3 (4.0-10.0)
[2020-09-14] MEDS: INSULIN SLIDING SCALE (NOVOLOG) 1 VIAL SQ SCH ×4 (06:46→21:26)
[2020-09-14 06:47] LABS: CALCIUM 9.1 mg/dL (8.5-10.1)
[2020-09-14 06:48] LABS: ALBUMIN 3.5 g/dl (3.4-5.0); BLOOD UREA NITROGEN 18.7 mg/dL (7-18); MAGNESIUM 2.3 mg/dL (1.8-2.4)
[2020-09-14 06:51] LABS: CREATININE 0.5 mg/dL (0.55-1.3); PHOSPHOROUS 4.7 mg/dL (2.5-4.9)
[2020-09-14 06:52] LABS: BILIRUBIN,TOTAL 0.8 mg/dL (0.2-1); TOT PROT 7.2 g/dl (6.4-8.2)
[2020-09-14] MEDS: ACETAMINOPHEN 325 MG TABLET (FP) PO PRN (10:05)
[2020-09-14] MEDS: PANTOPRAZOLE SODIUM 40 MG VIAL IVPUSH SCH (10:05)
[2020-09-14] MEDS: ENOXAPARIN NA (PORCINE) 40 MG/0.4 ML DISP.SYRIN SQ SCH ×2 (10:06→21:13)
[2020-09-14] MEDS: DOCUSATE SODIUM 100 MG CAPSULE (FP) PO SCH ×2 (10:06→21:14)
[2020-09-14] MEDS: FUROSEMIDE 40 MG/4 ML INJECTABLE VIAL IVPUSH SCH (10:06)
[2020-09-14] MEDS: FAMOTIDINE 20 MG TABLET PO SCH ×2 (10:06→21:13)
[2020-09-14] MEDS: metoPROLOL SUCCINATE 25 MG TAB.SR.24H (FP) PO SCH (10:06)
[2020-09-14] MEDS: SPIRONOLACTONE 25 MG TABLET PO SCH (10:06)
[2020-09-14] MEDS: SACUBITRIL/VALSARTAN 24 MG-26 MG TABLET PO SCH ×2 (10:06→21:13)
[2020-09-14] MEDS: POLYETHYLENE GLYCOL 3350 119 GM BTL PO SCH ×2 (10:07→21:13)
[2020-09-14] MEDS: ASPIRIN 81 MG CHEWABLE TABLETS PO SCH (10:07)
[2020-09-14 12:18] VITALS: BMI 46.6
[2020-09-14] MEDS ORDERED: FUROSEMIDE 40 MG/4 ML INJECTABLE VIAL IVPUSH ONE (14:00)
[2020-09-14] MEDS: ATORVASTATIN CA 20 MG TABLET (FP) PO SCH (21:13)
[2020-09-15] MEDS: INSULIN SLIDING SCALE (NOVOLOG) 1 VIAL SQ SCH ×2 (06:17→12:26)
[2020-09-15] MEDS: ENOXAPARIN NA (PORCINE) 40 MG/0.4 ML DISP.SYRIN SQ SCH (09:56)
[2020-09-15] MEDS: metoPROLOL SUCCINATE 25 MG TAB.SR.24H (FP) PO SCH (09:56)
[2020-09-15] MEDS: FAMOTIDINE 20 MG TABLET PO SCH (09:56)
[2020-09-15] MEDS: SACUBITRIL/VALSARTAN 24 MG-26 MG TABLET PO SCH (09:56)
[2020-09-15] MEDS: PANTOPRAZOLE SODIUM 40 MG VIAL IVPUSH SCH (09:56)
[2020-09-15] MEDS: DOCUSATE SODIUM 100 MG CAPSULE (FP) PO SCH (09:56)
[2020-09-15] MEDS: ASPIRIN 81 MG CHEWABLE TABLETS PO SCH (09:56)
[2020-09-15] MEDS: POLYETHYLENE GLYCOL 3350 119 GM BTL PO SCH (09:56)
[2020-09-15] MEDS: FUROSEMIDE 40 MG/4 ML INJECTABLE VIAL IVPUSH SCH (09:56)
[2020-09-15] MEDS: SPIRONOLACTONE 25 MG TABLET PO SCH (09:56)
[2020-09-15 10:41] LABS: CALCIUM 9.1 mg/dL (8.5-10.1)
[2020-09-15 10:42] LABS: BLOOD UREA NITROGEN 12.8 mg/dL (7-18)
[2020-09-15 10:45] LABS: CREATININE 0.5 mg/dL (0.55-1.3)
[2020-09-15 14:22] VITALS: BP 153/72; PULSE 81; TEMP 97.8
[2020-09-15] MEDS ORDERED: CARVEDILOL 6.25 MG TABLET (FP) PO SCH (22:00)
== END 2020-09-15 16:09 | disposition home or self-care (01) ==
LOC: JER 19:18 → JERBED 21:53 → INTOOBSV 21:53 → UNDOADMOB 21:53 → J4S 09-12 01:35 → JERBED 09-12 01:35 → J4S 09-12 14:30
PROVIDERS: ADMIT Internal Medicine; ATTEND Internal Medicine
PROC: 3E033NZ Introduction of Analgesics, Hypnotics, Sedatives into Peripheral Vein, Percutaneous Approach (ICD-10-PCS; principal; 2020-09-12)
PROC: 3E023GC Introduction of Other Therapeutic Substance into Muscle, Percutaneous Approach (ICD-10-PCS; 2020-09-12)
PROC: 3E033GC Introduction of Other Therapeutic Substance into Peripheral Vein, Percutaneous Approach (ICD-10-PCS; 2020-09-12)
DX: I24.8 Other forms of acute ischemic heart disease (principal); I11.9 Hypertensive heart disease without heart failure; E11.9 Type 2 diabetes mellitus without complications; I10 Essential (primary) hypertension; K76.0 Fatty (change of) liver, not elsewhere classified; Z86.16 Personal history of COVID-19; K59.00 Constipation, unspecified; R05 Cough; R07.89 Other chest pain; R79.89 Other specified abnormal findings of blood chemistry; I42.8 Other cardiomyopathies; R07.9 Chest pain, unspecified; R07.2 Precordial pain; E78.00 Pure hypercholesterolemia, unspecified; E66.09 Other obesity due to excess calories; Z68.42 Body mass index [BMI] 45.0-49.9, adult
CPT/HCPCS: 36415; 71046-TC-FY; 74019-TC-FY; 74178-TC; 80048; 80053; 80061; 81003; 82550; 82962; 83036; 83690; 83721; 83735; 83880; 84100; 84443; 84484; 85025; 85027; 87086; 93005; 93010; 93306-TC; 96365; 96372; 96375; 99285-25; C9803; G0378; J0131; U0003; U0005

== ENCOUNTER 2020-10-27 04:53 | Day surgery (SDC) | payer OTHER ==
[2020-10-23 16:54] VITALS: BMI 44.8
[2020-10-27] MEDS ORDERED: LIDOCAINE VISCOUS 2% ORAL/TOP 15 ML UNIT-DOSE CUP ONE (12:51)
[2020-10-27 13:29] VITALS: TEMP 97.6
[2020-10-27 14:18] VITALS: BP 112/59; PULSE 76
== END 2020-10-27 14:35 | disposition home or self-care (01) ==
LOC: JASU-ENDO 04:53
PROVIDERS: ATTEND Internal Medicine Cardiovascular Disease
PROC: B246ZZ4 Ultrasonography of Right and Left Heart, Transesophageal (ICD-10-PCS; principal; 2020-10-27 12:58)
DX: I42.0 Dilated cardiomyopathy (principal); I07.1 Rheumatic tricuspid insufficiency; I34.0 Nonrheumatic mitral (valve) insufficiency
CPT/HCPCS: 93312; 93325

== ENCOUNTER 2020-12-31 20:14 | Observation (INO) | payer OTHER ==
[2020-12-31 20:31] VITALS: BMI 44.6
[2020-12-31] MEDS ORDERED: FAMOTIDINE 20 MG/50 ML IVPB 20 MG/50 ML MG IVPB ONE ×2 (21:06→21:29)
[2020-12-31] MEDS ORDERED: ACETAMINOPHEN 1000 MG/100 ML VIAL (NON FORMULARY) IVPB ONE (21:06)
[2020-12-31 21:15] LABS: BASO % 0.8 % (0-2.0); EOS % 2.4 % (0-4.5); HEMATOCRIT 40.7 % (32.4-45.2); HEMOGLOBIN 13.8 GM/dL (10.7-15.3); LYMPH % 33.6 % (8-40); MCH 30.8 pg (25.7-33.7); MCHC 33.9 g/dl (32.0-36.0); MEAN CELL VOLUME 90.7 fl (80-96); MEAN PLT VOLUME 7.2 fl (7.5-11.1); MONO % 8.1 % (3.8-10.2); NEUT % 55.1 % (42.8-82.8); PLATELET COUNT 259 10^3/uL (134-434); RBC 4.49 M/mm3 (3.60-5.2); RDW 15.6 % (11.6-15.6); WHITE BLOOD COUNT 7.1 K/mm3 (4.0-10.0)
[2020-12-31 21:24] LABS: INR 1.05 (0.83-1.09); PROTHROMBIN TIME (PATIENT) 12.9 SEC (9.7-13.0)
[2020-12-31 21:25] LABS: ACTIVATED PTT 30.1 SECONDS (25.2-36.5)
[2020-12-31] MEDS ORDERED: ACETAMINOPHEN INJECTION 100 ML IVPB ONE (21:29)
[2020-12-31 21:34] LABS: CHLORIDE 106 mmol/L (98-107); SODIUM 141 mmol/L (136-145)
[2020-12-31 21:36] LABS: ALBUMIN 3.4 g/dl (3.4-5.0); CALCIUM 8.9 mg/dL (8.5-10.1)
[2020-12-31 21:37] LABS: ANION GAP 6 MMOL/L (8-16); BLOOD UREA NITROGEN 11.7 mg/dL (7-18); CO2 29 mmol/L (21-32); GLUCOSE,RANDOM 96 mg/dL (74-106); LIPASE 387 U/L (73-393); MAGNESIUM 2.1 mg/dL (1.8-2.4)
[2020-12-31 21:39] LABS: SGPT/ALT 22 U/L (13-61)
[2020-12-31 21:40] LABS: CREATININE 0.6 mg/dL (0.55-1.3); SGOT/AST 13 U/L (15-37)
[2020-12-31 21:41] LABS: BILIRUBIN,TOTAL 0.4 mg/dL (0.2-1); TOT PROT 7.4 g/dl (6.4-8.2)
[2020-12-31 21:42] LABS: ALK PHOS 95 U/L (45-117)
[2020-12-31] MEDS ORDERED: ASPIRIN 81 MG CHEWABLE TABLETS PO ONE (23:46)
[2021-01-01] MEDS ORDERED: ASPIRIN 81 MG CHEWABLE TABLETS ONE (00:03)
[2021-01-01] MEDS ORDERED: FAMOTIDINE 20 MG TABLET PO ONE (03:30)
[2021-01-01 06:39] VITALS: TEMP 98.4
[2021-01-01] MEDS: INSULIN SLIDING SCALE (NOVOLOG) 1 VIAL SQ SCH ×2 (07:14→11:07)
[2021-01-01 07:17] LABS: HEMATOCRIT 39.7 % (32.4-45.2); HEMOGLOBIN 13.5 GM/dL (10.7-15.3); MCH 31.1 pg (25.7-33.7); MCHC 33.9 g/dl (32.0-36.0); MEAN CELL VOLUME 91.5 fl (80-96); MEAN PLT VOLUME 7.7 fl (7.5-11.1); PLATELET COUNT 249 10^3/uL (134-434); RBC 4.34 M/mm3 (3.60-5.2); RDW 15.5 % (11.6-15.6); WHITE BLOOD COUNT 6.4 K/mm3 (4.0-10.0)
[2021-01-01 07:26] LABS: CHLORIDE 108 mmol/L (98-107); SODIUM 141 mmol/L (136-145)
[2021-01-01 07:28] LABS: CALCIUM 8.7 mg/dL (8.5-10.1)
[2021-01-01 07:29] LABS: ANION GAP 4 MMOL/L (8-16); BLOOD UREA NITROGEN 11.1 mg/dL (7-18); CO2 28 mmol/L (21-32); GLUCOSE,RANDOM 93 mg/dL (74-106); MAGNESIUM 2.3 mg/dL (1.8-2.4)
[2021-01-01 07:31] LABS: PHOSPHOROUS 4.6 mg/dL (2.5-4.9)
[2021-01-01 07:32] LABS: CREATININE 0.4 mg/dL (0.55-1.3)
[2021-01-01] MEDS ORDERED: SPIRONOLACTONE 25 MG TABLET ONE (09:55)
[2021-01-01] MEDS ORDERED: FAMOTIDINE 20 MG TABLET ONE (09:55)
[2021-01-01] MEDS ORDERED: ENOXAPARIN NA (PORCINE) 40 MG/0.4 ML DISP.SYRIN SQ ONE (09:56)
[2021-01-01] MEDS ORDERED: CARVEDILOL 6.25 MG TABLET (FP) PO SCH (10:00)
[2021-01-01] MEDS ORDERED: SPIRONOLACTONE 25 MG TABLET PO SCH (10:00)
[2021-01-01] MEDS ORDERED: FUROSEMIDE 20 MG TABLET (FP) PO SCH (10:00)
[2021-01-01] MEDS ORDERED: ENOXAPARIN NA (PORCINE) 40 MG/0.4 ML DISP.SYRIN SQ SCH (10:00)
[2021-01-01] MEDS ORDERED: FAMOTIDINE 20 MG TABLET PO SCH (10:00)
[2021-01-01] MEDS ORDERED: SACUBITRIL/VALSARTAN 49 MG-51 MG TABLET PO SCH (10:00)
[2021-01-01 10:13] LABS: EPI CELLS 12 /uL (0-25.1); HYALINE CASTS 2 /uL (0-3.1); PH,URINE 6.5 (5.0-8.0); URINE APPEARANCE CLEAR; URINE BACTERIA 216 /uL (0-1359); URINE BILIRUBIN NEGATIVE (NEGATIVE); URINE COLOR YELLOW; URINE GLUCOSE (UA) NEGATIVE (NEGATIVE); URINE KETONE NEGATIVE (NEGATIVE); URINE LEUK ESTERASE 2+ (NEGATIVE); URINE NITRITE NEGATIVE (NEGATIVE); URINE PROTEIN NEGATIVE (NEGATIVE); URINE RBC 21 /uL (0-23.9); URINE WBC 261 /uL (0-25.8)
[2021-01-01] MEDS ORDERED: PANTOPRAZOLE 40 MG TABLET PO SCH (13:15)
[2021-01-01] MEDS ORDERED: PANTOPRAZOLE 40 MG TABLET ONE (15:36)
[2021-01-01 16:20] VITALS: BP 126/71; PULSE 81
[2021-01-01] MEDS ORDERED: ATORVASTATIN CA 20 MG TABLET (FP) PO SCH (22:00)
== END 2021-01-01 16:28 | disposition home or self-care (01) ==
LOC: JER 20:14 → JERBED 23:00 → INTOOBSV 23:00
PROVIDERS: ADMIT Internal Medicine; ATTEND Internal Medicine
PROC: 3E033NZ Introduction of Analgesics, Hypnotics, Sedatives into Peripheral Vein, Percutaneous Approach (ICD-10-PCS; principal; 2020-12-31)
PROC: 3E023GC Introduction of Other Therapeutic Substance into Muscle, Percutaneous Approach (ICD-10-PCS; 2020-12-31)
DX: I11.0 Hypertensive heart disease with heart failure (principal); I50.23 Acute on chronic systolic (congestive) heart failure; I42.0 Dilated cardiomyopathy; Z87.440 Personal history of urinary (tract) infections; I42.8 Other cardiomyopathies; E66.01 Morbid (severe) obesity due to excess calories; Z68.41 Body mass index [BMI] 40.0-44.9, adult; E11.9 Type 2 diabetes mellitus without complications; K21.9 Gastro-esophageal reflux disease without esophagitis; E78.5 Hyperlipidemia, unspecified; Z23 Encounter for immunization
CPT/HCPCS: 36415; 71275-TC; 74174-TC; 80048; 80053; 81003; 82550; 82962; 83605; 83690; 83735; 84100; 84484; 84703; 85025; 85027; 85610; 85730; 93005; 93010; 96365; 96372; 96375; 99285-25; C9803; G0378; J0131; Q9967; U0003; U0005

== ENCOUNTER 2021-03-13 00:09 | Observation (INO) | payer OTHER ==
[2021-03-13 00:45] VITALS: BMI 51.9
[2021-03-13] MEDS ORDERED: MAG HYDROX/AL HYDROX/SIMETH -MYLANTA- ORAL SUSPENSION PO ONE (01:47)
[2021-03-13] MEDS ORDERED: SODIUM CHLORIDE 0.9% 1000 ML INFUS.BAG IV ONE (01:47)
[2021-03-13] MEDS ORDERED: FAMOTIDINE 20 MG/50 ML IVPB 20 MG/50 ML MG IVPB ONE ×2 (01:47→02:00)
[2021-03-13] MEDS ORDERED: MAG HYDROX/AL HYDROX/SIMETH 30 ML UNIT-DOSE CUP ONE (01:59)
[2021-03-13 02:11] LABS: BASO % 0.5 % (0-2.0); EOS % 3.9 % (0-4.5); HEMATOCRIT 44.3 % (32.4-45.2); HEMOGLOBIN 14.9 GM/dL (10.7-15.3); LYMPH % 28.2 % (8-40); MCH 31.6 pg (25.7-33.7); MCHC 33.6 g/dl (32.0-36.0); MEAN CELL VOLUME 94.1 fl (80-96); MEAN PLT VOLUME 8.6 fl (7.5-11.1); MONO % 6.7 % (3.8-10.2); NEUT % 60.7 % (42.8-82.8); PLATELET COUNT 247 10^3/uL (134-434); RDW 13.1 % (11.6-15.6); WHITE BLOOD COUNT 7.1 K/mm3 (4.0-10.0)
[2021-03-13 02:28] LABS: CHLORIDE 107 mmol/L (98-107); SODIUM 141 mmol/L (136-145)
[2021-03-13 02:30] LABS: ALBUMIN 3.8 g/dl (3.4-5.0); BLOOD UREA NITROGEN 12.7 mg/dL (7-18); CALCIUM 9.3 mg/dL (8.5-10.1); GLUCOSE,RANDOM 91 mg/dL (74-106); LIPASE 82 U/L (73-393)
[2021-03-13 02:33] LABS: CREATININE 0.5 mg/dL (0.55-1.3); SGOT/AST 30 U/L (15-37); SGPT/ALT 25 U/L (13-61)
[2021-03-13 02:35] LABS: BILIRUBIN,TOTAL 0.4 mg/dL (0.2-1); TOT PROT 8.4 g/dl (6.4-8.2)
[2021-03-13 02:36] LABS: ALK PHOS 101 U/L (45-117)
[2021-03-13 03:13] LABS: ANION GAP 7 MMOL/L (8-16); CO2 28 mmol/L (21-32)
[2021-03-13] MEDS ORDERED: ACETAMINOPHEN 325 MG TABLET (FP) PO PRN (04:57)
[2021-03-13] MEDS ORDERED: POLYETHYLENE GLYCOL (HEALTHYLAX) 3350 17 GM PACKET PO PRN (04:57)
[2021-03-13 06:15] VITALS: TEMP 98.1
[2021-03-13 08:33] LABS: MAGNESIUM 2.3 mg/dL (1.8-2.4)
[2021-03-13] MEDS ORDERED: ENOXAPARIN NA (PORCINE) 40 MG/0.4 ML DISP.SYRIN SQ ONE (08:54)
[2021-03-13] MEDS ORDERED: PANTOPRAZOLE 40 MG TABLET ONE (08:54)
[2021-03-13] MEDS: INSULIN SLIDING SCALE (NOVOLOG) 1 VIAL SQ SCH ×2 (09:02→13:24)
[2021-03-13] MEDS ORDERED: PANTOPRAZOLE 40 MG TABLET PO SCH (10:00)
[2021-03-13] MEDS ORDERED: ENOXAPARIN NA (PORCINE) 40 MG/0.4 ML DISP.SYRIN SQ SCH (10:00)
[2021-03-13] MEDS ORDERED: FUROSEMIDE 20 MG TABLET (FP) PO ONE (13:56)
[2021-03-13] MEDS ORDERED: CARVEDILOL 6.25 MG TABLET (FP) PO ONE (13:56)
[2021-03-13] MEDS ORDERED: SPIRONOLACTONE 25 MG TABLET PO ONE (13:56)
[2021-03-13] MEDS ORDERED: FUROSEMIDE 40 MG TABLET (FP) ONE (14:01)
[2021-03-13] MEDS ORDERED: CARVEDILOL 3.125 MG TABLET (FP) ONE (14:01)
[2021-03-13 14:08] VITALS: BP 142/83; PULSE 87
[2021-03-13] MEDS ORDERED: ATORVASTATIN CA 20 MG TABLET (FP) PO SCH (22:00)
[2021-03-13] MEDS ORDERED: CARVEDILOL 6.25 MG TABLET (FP) PO SCH (22:00)
[2021-03-13] MEDS ORDERED: SACUBITRIL/VALSARTAN 49 MG-51 MG TABLET PO SCH (22:00)
[2021-03-14] MEDS ORDERED: PATIENT'S OWN MEDICATION (NON-FORMULARY) (Benazepril Hcl [Benazepril Hcl] 20 MG Tablet) PO SCH (10:00)
[2021-03-14] MEDS ORDERED: FUROSEMIDE 20 MG TABLET (FP) PO SCH (10:00)
[2021-03-14] MEDS ORDERED: SPIRONOLACTONE 25 MG TABLET PO SCH (10:00)
== END 2021-03-13 16:15 | disposition home or self-care (01) ==
LOC: JER 00:09 → JERBED 04:15
PROVIDERS: ADMIT Internal Medicine; ATTEND Internal Medicine
PROC: 3E023GC Introduction of Other Therapeutic Substance into Muscle, Percutaneous Approach (ICD-10-PCS; principal; 2021-03-13)
PROC: 3E033GC Introduction of Other Therapeutic Substance into Peripheral Vein, Percutaneous Approach (ICD-10-PCS; 2021-03-13)
PROC: 3E0337Z Introduction of Electrolytic and Water Balance Substance into Peripheral Vein, Percutaneous Approach (ICD-10-PCS; 2021-03-13)
DX: I11.0 Hypertensive heart disease with heart failure (principal); I50.20 Unspecified systolic (congestive) heart failure; I50.23 Acute on chronic systolic (congestive) heart failure; I42.0 Dilated cardiomyopathy; E11.9 Type 2 diabetes mellitus without complications; G47.00 Insomnia, unspecified; K21.9 Gastro-esophageal reflux disease without esophagitis; R10.13 Epigastric pain; R51.9 Headache, unspecified; E78.00 Pure hypercholesterolemia, unspecified
CPT/HCPCS: 36415; 71046-TC-FY; 80053; 82962; 83690; 83735; 84443; 84484; 85025; 93005; 93010; 96365; 96372; 99285-25; C9803; G0378; U0003; U0005

== ENCOUNTER 2022-03-11 11:01 | Inpatient (IN) | payer OTHER ==
[2022-03-11 11:12] VITALS: BMI 45.7
[2022-03-11] MEDS ORDERED: ACETAMINOPHEN 1000 MG/100 ML BAG IVPB ONE (13:45)
[2022-03-11] MEDS ORDERED: ACETAMINOPHEN INJECTION 100 ML IVPB ONE ×2 (13:56→15:43)
[2022-03-11 14:35] LABS: BASO % 0.3 % (0-2.0); EOS % 0.9 % (0-4.5); HEMATOCRIT 40.7 % (32.4-45.2); HEMOGLOBIN 13.7 GM/dL (10.7-15.3); LYMPH % 11.4 % (8-40); MCH 31.3 pg (25.7-33.7); MCHC 33.6 g/dl (32.0-36.0); MEAN CELL VOLUME 93.1 fl (80-96); MONO % 9.7 % (3.8-10.2); NEUT % 77.7 % (42.8-82.8); PLATELET COUNT 227 10^3/uL (134-434); RBC 4.37 M/mm3 (3.60-5.2); RDW 13.2 % (11.6-15.6); WHITE BLOOD COUNT 6.5 K/mm3 (4.0-10.0)
[2022-03-11 14:42] LABS: INR 1.28 (0.83-1.09); PROTHROMBIN TIME (PATIENT) 14.7 SEC (9.7-13.0)
[2022-03-11 14:44] LABS: ACTIVATED PTT 33.2 SECONDS (25.2-36.5)
[2022-03-11 14:53] LABS: CHLORIDE 103 mmol/L (98-107); SODIUM 139 mmol/L (136-145)
[2022-03-11 14:55] LABS: CALCIUM 8.7 mg/dL (8.5-10.1)
[2022-03-11 14:56] LABS: ALBUMIN 3.6 g/dl (3.4-5.0); ANION GAP 8 MMOL/L (8-16); BLOOD UREA NITROGEN 13.5 mg/dL (7-18); CO2 28 mmol/L (21-32); GLUCOSE,RANDOM 108 mg/dL (74-106)
[2022-03-11 14:59] LABS: CREATININE 0.7 mg/dL (0.55-1.3); SGOT/AST 26 U/L (15-37); SGPT/ALT 30 U/L (13-61)
[2022-03-11 15:05] LABS: ALK PHOS 93 U/L (45-117); BILIRUBIN,TOTAL 0.4 mg/dL (0.2-1); TOT PROT 7.3 g/dl (6.4-8.2)
[2022-03-11] MEDS ORDERED: ASPIRIN 81 MG CHEWABLE TABLETS PO ONE (15:11)
[2022-03-11] MEDS ORDERED: ASPIRIN 81 MG CHEWABLE TABLETS ONE (15:43)
[2022-03-11] MEDS ORDERED: HEPARIN INFUSION - 25,000 UNITS/500 ML INFUS.BAG IVPB ONE (16:46)
[2022-03-11] MEDS: HEPARIN - 25,000 UNIT in SODIUM CHLORIDE 495 ML IV SCH (17:02)
[2022-03-11] MEDS ORDERED: ATORVASTATIN CA 20 MG TABLET (FP) ONE (21:04)
[2022-03-11] MEDS ORDERED: CARVEDILOL 6.25 MG TABLET (FP) ONE (21:05)
[2022-03-11] MEDS: ATORVASTATIN CA 20 MG TABLET (FP) PO SCH (22:00)
[2022-03-12] MEDS: CARVEDILOL 6.25 MG TABLET (FP) PO SCH ×3 (01:14→21:30)
[2022-03-12] MEDS: SACUBITRIL/VALSARTAN 49 MG-51 MG TABLET PO SCH ×3 (01:14→21:31)
[2022-03-12] MEDS ORDERED: HEPARIN NA (PORCINE) 5,000 UNITS/ML 1ML VIAL ONE (01:16)
[2022-03-12] MEDS: ACETAMINOPHEN 325 MG TABLET (FP) PO PRN ×3 (04:59→21:29)
[2022-03-12] MEDS: metFORMIN HCL 500 MG TABLET (FP) PO SCH ×2 (06:51→16:32)
[2022-03-12 07:21] LABS: INR 1.21 (0.83-1.09); PROTHROMBIN TIME (PATIENT) 13.9 SEC (9.7-13.0)
[2022-03-12 07:24] LABS: ACTIVATED PTT 55.2 SECONDS (25.2-36.5)
[2022-03-12 07:47] LABS: CALCIUM 8.3 mg/dL (8.5-10.1)
[2022-03-12 07:48] LABS: ALBUMIN 3.2 g/dl (3.4-5.0); BLOOD UREA NITROGEN 10.2 mg/dL (7-18)
[2022-03-12 07:51] LABS: CREATININE 0.4 mg/dL (0.55-1.3)
[2022-03-12 07:52] LABS: BILIRUBIN,TOTAL 0.3 mg/dL (0.2-1); TOT PROT 6.8 g/dl (6.4-8.2)
[2022-03-12] MEDS: PANTOPRAZOLE 40 MG TABLET PO SCH (09:37)
[2022-03-12] MEDS: FUROSEMIDE 20 MG TABLET (FP) PO SCH (09:37)
[2022-03-12] MEDS: SPIRONOLACTONE 25 MG TABLET PO SCH (09:37)
[2022-03-12] MEDS: HEPARIN - 25,000 UNIT in SODIUM CHLORIDE 495 ML IV SCH (16:31)
[2022-03-12] MEDS: guaiFENesin/D-M SUGAR-FREE/ACLHOL-FREE 5 ML UNIT DOSE PO PRN ×2 (18:29→21:31)
[2022-03-13] MEDS: MELATONIN 5 MG TABLETS PO PRN ×2 (04:43→21:14)
[2022-03-13] MEDS: ATORVASTATIN CA 20 MG TABLET (FP) PO SCH ×2 (04:44→21:14)
[2022-03-13] MEDS: metFORMIN HCL 500 MG TABLET (FP) PO SCH ×2 (06:45→17:05)
[2022-03-13 08:37] LABS: BASO % 0.5 % (0-2.0); EOS % 2.5 % (0-4.5); HEMOGLOBIN 12.7 GM/dL (10.7-15.3); LYMPH % 25.7 % (8-40); MCH 30.5 pg (25.7-33.7); MCHC 32.5 g/dl (32.0-36.0); MEAN CELL VOLUME 93.6 fl (80-96); MONO % 10.6 % (3.8-10.2); NEUT % 60.7 % (42.8-82.8); PLATELET COUNT 194 10^3/uL (134-434); RBC 4.17 M/mm3 (3.60-5.2); WHITE BLOOD COUNT 3.9 K/mm3 (4.0-10.0)
[2022-03-13 09:06] LABS: ALBUMIN 3.2 g/dl (3.4-5.0); CALCIUM 8.2 mg/dL (8.5-10.1)
[2022-03-13] MEDS ORDERED: SENNOSIDES 8.6MG TABLET (FP) PO PRN (09:06)
[2022-03-13 09:07] LABS: BLOOD UREA NITROGEN 7.2 mg/dL (7-18)
[2022-03-13 09:09] LABS: CREATININE 0.4 mg/dL (0.55-1.3)
[2022-03-13 09:11] LABS: BILIRUBIN,TOTAL 0.2 mg/dL (0.2-1); TOT PROT 6.7 g/dl (6.4-8.2)
[2022-03-13] MEDS: guaiFENesin/D-M SUGAR-FREE/ACLHOL-FREE 5 ML UNIT DOSE PO PRN ×2 (09:34→16:58)
[2022-03-13] MEDS: PANTOPRAZOLE 40 MG TABLET PO SCH (09:35)
[2022-03-13] MEDS: SACUBITRIL/VALSARTAN 49 MG-51 MG TABLET PO SCH ×2 (09:35→21:13)
[2022-03-13] MEDS: FUROSEMIDE 20 MG TABLET (FP) PO SCH (09:35)
[2022-03-13] MEDS: CARVEDILOL 6.25 MG TABLET (FP) PO SCH (09:35)
[2022-03-13] MEDS: SPIRONOLACTONE 25 MG TABLET PO SCH (09:35)
[2022-03-13] MEDS: POLYETHYLENE GLYCOL (HEALTHYLAX) 3350 17 GM PACKET PO SCH (10:17)
[2022-03-13] MEDS: ACETAMINOPHEN 325 MG TABLET (FP) PO PRN ×2 (12:23→20:25)
[2022-03-13 18:55] LABS: EPI CELLS 30 /uL (0-25.1); HYALINE CASTS 0 /uL (0-3.1); PH,URINE 6.5 (5.0-8.0); URINE APPEARANCE CLEAR; URINE BACTERIA 97 /uL (0-1359); URINE BILIRUBIN NEGATIVE (NEGATIVE); URINE COLOR YELLOW; URINE GLUCOSE (UA) NEGATIVE (NEGATIVE); URINE KETONE NEGATIVE (NEGATIVE); URINE LEUK ESTERASE 1+ (NEGATIVE); URINE NITRITE NEGATIVE (NEGATIVE); URINE PROTEIN NEGATIVE (NEGATIVE); URINE RBC 11 /uL (0-23.9); URINE UROBILINOGEN 0.2 mg/dL (0.2-1.0); URINE WBC 18 /uL (0-25.8)
[2022-03-13] MEDS ORDERED: ONDANSETRON 4 MG/2 ML VIAL IVPUSH ONE (20:10)
[2022-03-13] MEDS ORDERED: CEFTRIAXONE 1 GM in DEXTROSE 5%-WATER - 50 ML IVPB ONE (21:33)
[2022-03-14] MEDS ORDERED: CEFTRIAXONE 1 GM in DEXTROSE 5%-WATER - 50 ML IVPB ONE (01:00)
[2022-03-14] MEDS: metFORMIN HCL 500 MG TABLET (FP) PO SCH ×3 (06:29→17:50)
[2022-03-14] MEDS: CARVEDILOL 6.25 MG TABLET (FP) PO SCH ×3 (06:29→21:32)
[2022-03-14] MEDS: guaiFENesin/D-M SUGAR-FREE/ACLHOL-FREE 5 ML UNIT DOSE PO PRN ×2 (06:31→19:43)
[2022-03-14 08:21] LABS: BLOOD UREA NITROGEN 5.7 mg/dL (7-18); CALCIUM 8.1 mg/dL (8.5-10.1)
[2022-03-14 08:24] LABS: CREATININE 0.4 mg/dL (0.55-1.3)
[2022-03-14 08:26] LABS: BILIRUBIN,TOTAL 0.3 mg/dL (0.2-1); TOT PROT 6.6 g/dl (6.4-8.2)
[2022-03-14 08:37] LABS: BASO % 0.3 % (0-2.0); HEMOGLOBIN 12.3 GM/dL (10.7-15.3); MCHC 32.9 g/dl (32.0-36.0); RDW 12.8 % (11.6-15.6)
[2022-03-14 08:46] LABS: EOS % 0.2 % (0-4.5); HEMATOCRIT 37.4 % (32.4-45.2); LYMPH % 22.2 % (8-40); MCH 30.6 pg (25.7-33.7); MEAN CELL VOLUME 92.9 fl (80-96); MEAN PLT VOLUME 8.6 fl (7.5-11.1); MONO % 11.5 % (3.8-10.2); NEUT % 65.8 % (42.8-82.8); PLATELET COUNT 187 10^3/uL (134-434); RBC 4.02 M/mm3 (3.60-5.2); WHITE BLOOD COUNT 4.4 K/mm3 (4.0-10.0)
[2022-03-14] MEDS ORDERED: PIPERACILLIN/TAZOB 4.5 GM 4.5 GM in DEXTROSE 5%-WATER 100 ML IVPB SCH ×2 (10:00→18:00)
[2022-03-14] MEDS: SACUBITRIL/VALSARTAN 49 MG-51 MG TABLET PO SCH ×2 (10:29→21:32)
[2022-03-14] MEDS: ACETAMINOPHEN 325 MG TABLET (FP) PO PRN (10:29)
[2022-03-14] MEDS: PANTOPRAZOLE 40 MG TABLET PO SCH (10:29)
[2022-03-14] MEDS: SPIRONOLACTONE 25 MG TABLET PO SCH (10:29)
[2022-03-14] MEDS: FUROSEMIDE 20 MG TABLET (FP) PO SCH (10:29)
[2022-03-14] MEDS: POLYETHYLENE GLYCOL (HEALTHYLAX) 3350 17 GM PACKET PO SCH ×2 (10:31→10:53)
[2022-03-14] MEDS: PIPERACILLIN/TAZOB 3.375 GM 3.375 GM in DEXTROSE 5%-WATER - 50 ML IVPB SCH (17:39)
[2022-03-14] MEDS: MELATONIN 5 MG TABLETS PO PRN (21:32)
[2022-03-14] MEDS: ATORVASTATIN CA 20 MG TABLET (FP) PO SCH (21:32)
[2022-03-15] MEDS: PIPERACILLIN/TAZOB 3.375 GM 3.375 GM in DEXTROSE 5%-WATER - 50 ML IVPB SCH ×3 (02:25→17:42)
[2022-03-15] MEDS: DEXTROMETHORPHAN/PROMETHAZINE 15 MG/6.25 MG/5 ML SYRUP PO PRN ×2 (02:25→21:36)
[2022-03-15] MEDS: metFORMIN HCL 500 MG TABLET (FP) PO SCH ×2 (06:28→17:42)
[2022-03-15] MEDS: FUROSEMIDE 20 MG TABLET (FP) PO SCH (10:19)
[2022-03-15] MEDS: SACUBITRIL/VALSARTAN 49 MG-51 MG TABLET PO SCH ×2 (10:19→21:37)
[2022-03-15] MEDS: SPIRONOLACTONE 25 MG TABLET PO SCH (10:19)
[2022-03-15] MEDS: CARVEDILOL 6.25 MG TABLET (FP) PO SCH ×2 (10:19→21:37)
[2022-03-15] MEDS: PANTOPRAZOLE 40 MG TABLET PO SCH (10:19)
[2022-03-15] MEDS: POLYETHYLENE GLYCOL (HEALTHYLAX) 3350 17 GM PACKET PO SCH (10:23)
[2022-03-15] MEDS: MELATONIN 5 MG TABLETS PO PRN (21:36)
[2022-03-15] MEDS: ACETAMINOPHEN 325 MG TABLET (FP) PO PRN (21:36)
[2022-03-15] MEDS: ATORVASTATIN CA 20 MG TABLET (FP) PO SCH (21:37)
[2022-03-16] MEDS: PIPERACILLIN/TAZOB 3.375 GM 3.375 GM in DEXTROSE 5%-WATER - 50 ML IVPB SCH ×3 (02:35→17:11)
[2022-03-16] MEDS: metFORMIN HCL 500 MG TABLET (FP) PO SCH ×2 (06:32→17:11)
[2022-03-16] MEDS: FUROSEMIDE 20 MG TABLET (FP) PO SCH (10:10)
[2022-03-16] MEDS: SPIRONOLACTONE 25 MG TABLET PO SCH (10:10)
[2022-03-16] MEDS: PANTOPRAZOLE 40 MG TABLET PO SCH (10:10)
[2022-03-16] MEDS: CARVEDILOL 6.25 MG TABLET (FP) PO SCH ×2 (10:11→22:10)
[2022-03-16] MEDS: POLYETHYLENE GLYCOL (HEALTHYLAX) 3350 17 GM PACKET PO SCH (10:11)
[2022-03-16] MEDS: SACUBITRIL/VALSARTAN 49 MG-51 MG TABLET PO SCH ×2 (10:12→22:10)
[2022-03-16] MEDS: DEXTROMETHORPHAN/PROMETHAZINE 15 MG/6.25 MG/5 ML SYRUP PO PRN (10:13)
[2022-03-16] MEDS: ATORVASTATIN CA 20 MG TABLET (FP) PO SCH (22:10)
[2022-03-16] MEDS: ACETAMINOPHEN 325 MG TABLET (FP) PO PRN (22:14)
[2022-03-16] MEDS: MELATONIN 5 MG TABLETS PO PRN (22:15)
[2022-03-17] MEDS: PIPERACILLIN/TAZOB 3.375 GM 3.375 GM in DEXTROSE 5%-WATER - 50 ML IVPB SCH ×2 (02:30→11:13)
[2022-03-17] MEDS: metFORMIN HCL 500 MG TABLET (FP) PO SCH (06:34)
[2022-03-17] MEDS: PANTOPRAZOLE 40 MG TABLET PO SCH (10:18)
[2022-03-17] MEDS: FUROSEMIDE 20 MG TABLET (FP) PO SCH (10:18)
[2022-03-17] MEDS: SPIRONOLACTONE 25 MG TABLET PO SCH (10:18)
[2022-03-17] MEDS: CARVEDILOL 6.25 MG TABLET (FP) PO SCH (10:18)
[2022-03-17] MEDS: POLYETHYLENE GLYCOL (HEALTHYLAX) 3350 17 GM PACKET PO SCH (10:18)
[2022-03-17] MEDS: SACUBITRIL/VALSARTAN 49 MG-51 MG TABLET PO SCH (10:18)
[2022-03-17 14:59] VITALS: TEMP 98.1
[2022-03-17 15:57] VITALS: BP 126/58; PULSE 93; RESP 20
== END 2022-03-17 16:50 | disposition home or self-care (01) | DRG 201 ==
LOC: JER 11:01 → JERBED 14:56 → J4W 03-12 04:48
PROVIDERS: ADMIT Internal Medicine; ATTEND Internal Medicine
DX: R00.2 Palpitations (principal); E78.5 Hyperlipidemia, unspecified; I42.0 Dilated cardiomyopathy; I11.0 Hypertensive heart disease with heart failure; I50.22 Chronic systolic (congestive) heart failure; I24.8 Other forms of acute ischemic heart disease; F41.9 Anxiety disorder, unspecified; I36.1 Nonrheumatic tricuspid (valve) insufficiency; Z79.84 Long term (current) use of oral hypoglycemic drugs; E66.01 Morbid (severe) obesity due to excess calories; Z68.43 Body mass index [BMI] 50.0-59.9, adult; I49.3 Ventricular premature depolarization; J06.9 Acute upper respiratory infection, unspecified
CPT/HCPCS: 0241U-QW; 36415; 71045-TC-FY; 71046-TC-FY; 80053; 80061; 81003; 82550; 82962; 83880; 84443; 84484; 85025; 85610; 85730; 87040; 87086; 87899; 93005; 93010; 94761; 97116-GP; 97161-GP; 99285-25; J1644

== ENCOUNTER 2022-08-01 17:31 | Observation (INO) | payer OTHER ==
[2022-08-01 17:35] VITALS: BMI 43.9
[2022-08-01] MEDS ORDERED: FAMOTIDINE 20 MG/50 ML IVPB 20 MG/50 ML MG IVPB ONE ×2 (19:25→20:29)
[2022-08-01] MEDS ORDERED: MAG HYDROX/AL HYDROX/SIMETH 30 ML UNIT-DOSE CUP PO ONE (19:25)
[2022-08-01] MEDS ORDERED: ACETAMINOPHEN 1000 MG/100 ML BAG IVPB ONE (19:42)
[2022-08-01 20:21] LABS: EPI CELLS >36 /uL (0-25.1); HYALINE CASTS 2 /uL (0-3.1); URINE APPEARANCE CLOUDY; URINE BACTERIA 688 /uL (0-1359); URINE BILIRUBIN NEGATIVE (NEGATIVE); URINE COLOR YELLOW; URINE GLUCOSE (UA) NEGATIVE (NEGATIVE); URINE KETONE TRACE (NEGATIVE); URINE LEUK ESTERASE 2+ (NEGATIVE); URINE NITRITE NEGATIVE (NEGATIVE); URINE PROTEIN NEGATIVE (NEGATIVE); URINE WBC 126 /uL (0-25.8)
[2022-08-01] MEDS ORDERED: MAG HYDROX/AL HYDROX/SIMETH 30 ML UNIT-DOSE CUP ONE (20:29)
[2022-08-01] MEDS ORDERED: ACETAMINOPHEN INJECTION 100 ML IVPB ONE (20:29)
[2022-08-01 20:36] LABS: BASO % 0.5 % (0-2.0); EOS % 1.9 % (0-4.5); HEMATOCRIT 38.1 % (32.4-45.2); HEMOGLOBIN 13.1 GM/dL (10.7-15.3); LYMPH % 32.8 % (8-40); MCH 31.2 pg (25.7-33.7); MCHC 34.3 g/dl (32.0-36.0); MEAN PLT VOLUME 7.5 fl (7.5-11.1); MONO % 9.2 % (3.8-10.2); NEUT % 55.6 % (42.8-82.8); PLATELET COUNT 276 10^3/uL (134-434); RBC 4.19 M/mm3 (3.60-5.2); WHITE BLOOD COUNT 6.9 K/mm3 (4.0-10.0)
[2022-08-01 20:43] LABS: INR 1.04 (0.83-1.09); PROTHROMBIN TIME (PATIENT) 12.1 SEC (9.7-13.0)
[2022-08-01 20:46] LABS: ACTIVATED PTT 31.2 SECONDS (25.2-36.5)
[2022-08-01 21:02] LABS: ALBUMIN 3.4 g/dl (3.4-5.0); BLOOD UREA NITROGEN 15.5 mg/dL (7-18); CALCIUM 8.8 mg/dL (8.5-10.1); MAGNESIUM 2.1 mg/dL (1.8-2.4)
[2022-08-01 21:05] LABS: CREATININE 0.5 mg/dL (0.55-1.3)
[2022-08-01 21:07] LABS: BILIRUBIN,TOTAL 0.2 mg/dL (0.2-1); TOT PROT 7.2 g/dl (6.4-8.2)
[2022-08-01 21:10] LABS: N-TERMINAL BNP 350.5 pg/ml (5-125)
[2022-08-01 22:08] LABS: URINE RBC 76.5 /uL (0-23.9); YEAST NONE SEEN (NEGATIVE)
[2022-08-02 06:51] VITALS: PULSE 90
[2022-08-02 07:17] LABS: ALBUMIN 3.4 g/dl (3.4-5.0); CALCIUM 8.6 mg/dL (8.5-10.1); MAGNESIUM 2.1 mg/dL (1.8-2.4)
[2022-08-02 07:18] LABS: BLOOD UREA NITROGEN 13.8 mg/dL (7-18)
[2022-08-02 07:20] LABS: CREATININE 0.4 mg/dL (0.55-1.3)
[2022-08-02 07:22] LABS: BILIRUBIN,TOTAL 0.4 mg/dL (0.2-1); TOT PROT 6.9 g/dl (6.4-8.2)
[2022-08-02 09:04] LABS: BASO % 0.6 % (0-2.0); EOS % 2.2 % (0-4.5); HEMATOCRIT 36.7 % (32.4-45.2); HEMOGLOBIN 12.6 GM/dL (10.7-15.3); MCH 31.4 pg (25.7-33.7); MCHC 34.2 g/dl (32.0-36.0); MEAN CELL VOLUME 91.8 fl (80-96); MEAN PLT VOLUME 7.8 fl (7.5-11.1); MONO % 7.2 % (3.8-10.2); PLATELET COUNT 255 10^3/uL (134-434); RBC 3.99 M/mm3 (3.60-5.2); RDW 13.4 % (11.6-15.6); WHITE BLOOD COUNT 5.9 K/mm3 (4.0-10.0)
[2022-08-02] MEDS ORDERED: SACUBITRIL/VALSARTAN 49 MG-51 MG TABLET PO SCH (10:00)
[2022-08-02] MEDS ORDERED: CARVEDILOL 6.25 MG TABLET (FP) PO SCH (10:00)
[2022-08-02] MEDS ORDERED: PANTOPRAZOLE 40 MG TABLET PO SCH (10:00)
[2022-08-02] MEDS ORDERED: PANTOPRAZOLE 40 MG TABLET PO ONE (10:05)
[2022-08-02] MEDS ORDERED: CARVEDILOL 6.25 MG TABLET (FP) ONE (10:06)
[2022-08-02 13:47] VITALS: BP 126/75; RESP 16; TEMP 98.4
== END 2022-08-02 13:48 | disposition home or self-care (01) ==
LOC: JER 17:31 → JERBED 22:25
PROVIDERS: ADMIT Internal Medicine; ATTEND Internal Medicine
PROC: 3E033GC Introduction of Other Therapeutic Substance into Peripheral Vein, Percutaneous Approach (ICD-10-PCS; principal; 2022-08-01)
PROC: 3E033NZ Introduction of Analgesics, Hypnotics, Sedatives into Peripheral Vein, Percutaneous Approach (ICD-10-PCS; 2022-08-01)
DX: I24.9 Acute ischemic heart disease, unspecified (principal); I10 Essential (primary) hypertension; K21.9 Gastro-esophageal reflux disease without esophagitis; I42.8 Other cardiomyopathies; E78.00 Pure hypercholesterolemia, unspecified; E11.9 Type 2 diabetes mellitus without complications; E66.01 Morbid (severe) obesity due to excess calories; Z68.41 Body mass index [BMI] 40.0-44.9, adult
CPT/HCPCS: 0241U-QW; 36415; 71046-TC-FY; 76705-TC; 80053; 81003; 82962; 83690; 83735; 83880; 84484; 85025; 85610; 85730; 87086; 87186; 93005; 93010; 96365; 96375; 99285-25; G0378

== ENCOUNTER 2023-02-13 13:30 | Emergency (ER) | payer OTHER ==
[2023-02-13 13:36] VITALS: BP 157/83; PULSE 94; RESP 18; TEMP 98; BMI 45.7
[2023-02-13] MEDS ORDERED: CEFAZOLIN 1 GM in DEXTROSE 5%-WATER - 50 ML IVPB ONE (17:27)
[2023-02-13] MEDS ORDERED: DIPHTH,PERTUSS(ACELL),TET 0.5 ML DISP.SYRIN IM ONE ×2 (17:27→17:54)
[2023-02-13] MEDS ORDERED: ceFAZolin SODIUM 1 GM VIAL ONE (17:54)
== END 2023-02-13 20:04 | disposition home or self-care (01) ==
LOC: JER 13:30
PROC: 0HQQXZZ Repair Finger Nail, External Approach (ICD-10-PCS; principal; 2023-02-13)
PROC: 3E03329 Introduction of Other Anti-infective into Peripheral Vein, Percutaneous Approach (ICD-10-PCS; 2023-02-13)
PROC: 3E0234Z Introduction of Serum, Toxoid and Vaccine into Muscle, Percutaneous Approach (ICD-10-PCS; 2023-02-13)
DX: S61.314A Laceration without foreign body of right ring finger with damage to nail, initial encounter (principal); W23.0XXA Caught, crushed, jammed, or pinched between moving objects, initial encounter; Y92.9 Unspecified place or not applicable
CPT/HCPCS: 11760; 73130-TC-RT-FY; 90471; 90715; 96365; 99284-25

== ENCOUNTER 2023-02-23 15:00 | Emergency (ER) | payer OTHER ==
[2023-02-23 15:15] VITALS: PULSE 83; RESP 17; TEMP 98.3; BMI 41.5
[2023-02-23] MEDS ORDERED: ACETAMINOPHEN 500 MG TABLET (FP) PO ONE (16:37)
[2023-02-23] MEDS ORDERED: ACETAMINOPHEN 325 MG TABLET (FP) ONE (16:41)
[2023-02-23 16:46] LABS: BASO % 0.4 % (0-2.0); EOS % 1.4 % (0-4.5); HEMATOCRIT 39.3 % (32.4-45.2); HEMOGLOBIN 13.3 GM/dL (10.7-15.3); MCH 31.1 pg (25.7-33.7); MCHC 33.8 g/dl (32.0-36.0); MEAN PLT VOLUME 7.3 fl (7.5-11.1); MONO % 7.6 % (3.8-10.2); NEUT % 64.6 % (42.8-82.8); PLATELET COUNT 301 10^3/uL (134-434); RBC 4.28 M/mm3 (3.60-5.2); RDW 12.8 % (11.6-15.6); WHITE BLOOD COUNT 8.4 K/mm3 (4.0-10.0)
[2023-02-23 17:20] LABS: ALBUMIN 3.6 g/dl (3.4-5.0); BLOOD UREA NITROGEN 17.5 mg/dL (7-18); CALCIUM 8.8 mg/dL (8.5-10.1); MAGNESIUM 2.1 mg/dL (1.8-2.4)
[2023-02-23 17:24] LABS: CREATININE 0.5 mg/dL (0.55-1.3)
[2023-02-23 17:25] LABS: BILIRUBIN,TOTAL 0.3 mg/dL (0.2-1); TOT PROT 7.1 g/dl (6.4-8.2)
[2023-02-23] MEDS ORDERED: SODIUM CHLORIDE 0.9% 500 ML INFUS.BAG IV ONE (17:45)
[2023-02-23 19:50] VITALS: BP 99/64
== END 2023-02-23 20:35 | disposition home or self-care (01) ==
LOC: JER 15:00
DX: R42 Dizziness and giddiness (principal); R00.2 Palpitations
CPT/HCPCS: 36415; 71046-TC-FY; 80053; 83735; 84443; 84484; 85025; 93005; 93010; 99285-25

== ENCOUNTER 2023-07-06 18:34 | Observation (INO) | payer OTHER ==
[2023-07-06] MEDS ORDERED: MAG HYDROX/AL HYDROX/SIMETH 30 ML UNIT-DOSE CUP ONE (20:54)
[2023-07-06] MEDS ORDERED: FAMOTIDINE 20 MG/50 ML IVPB 20 MG/50 ML MG IVPB ONE (20:54)
[2023-07-06] MEDS ORDERED: ACETAMINOPHEN INJECTION 100 ML IVPB ONE (20:54)
[2023-07-06 20:55] LABS: BASO % 0.5 % (0-2.0); EOS % 2.3 % (0-4.5); HEMATOCRIT 40.5 % (32.4-45.2); HEMOGLOBIN 13.8 GM/dL (10.7-15.3); LYMPH % 38.3 % (8-40); MCH 31.2 pg (25.7-33.7); MEAN CELL VOLUME 91.7 fl (80-96); MEAN PLT VOLUME 7.4 fl (7.5-11.1); MONO % 13.7 % (3.8-10.2); NEUT % 45.2 % (42.8-82.8); PLATELET COUNT 247 10^3/uL (134-434); RBC 4.42 M/mm3 (3.60-5.2); RDW 13.6 % (11.6-15.6); WHITE BLOOD COUNT 5.3 K/mm3 (4.0-10.0)
[2023-07-06 21:05] LABS: INR 1.04 (0.83-1.09); PROTHROMBIN TIME (PATIENT) 12.1 SEC (9.7-13.0)
[2023-07-06 21:08] LABS: ACTIVATED PTT 29.2 SECONDS (25.2-36.5)
[2023-07-06] MEDS: ACETAMINOPHEN 1000 MG/100 ML BAG IVPB ONE (21:16)
[2023-07-06] MEDS: FAMOTIDINE 20 MG/50 ML IVPB 20 MG/50 ML MG IVPB ONE (21:17)
[2023-07-06] MEDS: MAG HYDROX/AL HYDROX/SIMETH 30 ML UNIT-DOSE CUP PO ONE (21:17)
[2023-07-06 21:20] LABS: POTASSIUM 4.1 mmol/L (3.5-5.1)
[2023-07-06 21:23] LABS: CALCIUM 9.5 mg/dL (8.5-10.1)
[2023-07-06 21:24] LABS: ALBUMIN 3.5 g/dl (3.4-5.0); BLOOD UREA NITROGEN 10.3 mg/dL (7-18); MAGNESIUM 2.3 mg/dL (1.8-2.4)
[2023-07-06 21:27] LABS: CREATININE 0.5 mg/dL (0.55-1.3)
[2023-07-06 21:29] LABS: BILIRUBIN,TOTAL 0.3 mg/dL (0.2-1); TOT PROT 7.1 g/dl (6.4-8.2)
[2023-07-07] MEDS: metFORMIN HCL 500 MG TABLET (FP) PO SCH (06:22)
[2023-07-07 06:41] LABS: BASO % 0.3 % (0-2.0); EOS % 2.4 % (0-4.5); HEMATOCRIT 38.7 % (32.4-45.2); HEMOGLOBIN 12.8 GM/dL (10.7-15.3); LYMPH % 39.7 % (8-40); MCH 30.6 pg (25.7-33.7); MCHC 33.1 g/dl (32.0-36.0); MEAN CELL VOLUME 92.5 fl (80-96); MEAN PLT VOLUME 7.9 fl (7.5-11.1); MONO % 13.8 % (3.8-10.2); NEUT % 43.8 % (42.8-82.8); PLATELET COUNT 233 10^3/uL (134-434); RBC 4.19 M/mm3 (3.60-5.2); RDW 13.1 % (11.6-15.6); WHITE BLOOD COUNT 4.8 K/mm3 (4.0-10.0)
[2023-07-07 07:02] LABS: POTASSIUM 3.9 mmol/L (3.5-5.1)
[2023-07-07 07:07] LABS: CALCIUM 8.5 mg/dL (8.5-10.1)
[2023-07-07 07:08] LABS: BLOOD UREA NITROGEN 8.6 mg/dL (7-18)
[2023-07-07 07:10] LABS: CREATININE 0.4 mg/dL (0.55-1.3)
[2023-07-07 08:10] VITALS: BMI 45.3
[2023-07-07] MEDS: SACUBITRIL/VALSARTAN 49 MG-51 MG TABLET PO SCH (11:46)
[2023-07-07] MEDS: HEPARIN NA (PORCINE) 5,000 UNITS/ML 1ML VIAL SQ SCH (22:34)
[2023-07-07] MEDS: ATORVASTATIN CA 20 MG TABLET (FP) PO SCH (22:34)
[2023-07-07] MEDS: MELATONIN 5 MG TABLETS PO ONE (23:25)
[2023-07-08] MEDS: metoPROLOL SUCCINATE 25 MG TAB.SR.24H (FP) PO SCH (11:28)
[2023-07-08] MEDS: SPIRONOLACTONE 25 MG TABLET PO SCH (14:30)
[2023-07-08 15:16] VITALS: RESP 18
[2023-07-08] MEDS: EMPAGLIFLOZIN (JARDIANCE) 10 MG TABLET PO SCH (17:15)
[2023-07-08] MEDS: MELATONIN 5 MG TABLETS PO ONE (23:43)
[2023-07-09 00:58] LABS: POTASSIUM 4.5 mmol/L (3.5-5.1)
[2023-07-09 00:59] LABS: CALCIUM 8.9 mg/dL (8.5-10.1)
[2023-07-09 01:00] LABS: BLOOD UREA NITROGEN 6.8 mg/dL (7-18); MAGNESIUM 1.9 mg/dL (1.8-2.4)
[2023-07-09 01:03] LABS: CREATININE 0.4 mg/dL (0.55-1.3); PHOSPHOROUS 3.1 mg/dL (2.5-4.9)
[2023-07-09 14:26] VITALS: BP 119/83; PULSE 84; TEMP 97.7
== END 2023-07-09 18:36 | disposition home or self-care (01) ==
LOC: JER 18:34 → JERBED 07-07 01:25 → J4W 07-07 06:15
PROVIDERS: ADMIT Internal Medicine; ATTEND Internal Medicine
PROC: 3E033NZ Introduction of Analgesics, Hypnotics, Sedatives into Peripheral Vein, Percutaneous Approach (ICD-10-PCS; principal; 2023-07-07)
PROC: 3E023GC Introduction of Other Therapeutic Substance into Muscle, Percutaneous Approach (ICD-10-PCS; 2023-07-07)
PROC: 3E033GC Introduction of Other Therapeutic Substance into Peripheral Vein, Percutaneous Approach (ICD-10-PCS; 2023-07-07)
PROC: 3E033NZ Introduction of Analgesics, Hypnotics, Sedatives into Peripheral Vein, Percutaneous Approach (ICD-10-PCS; 2023-07-07)
DX: I50.20 Unspecified systolic (congestive) heart failure (principal); K21.9 Gastro-esophageal reflux disease without esophagitis; E78.00 Pure hypercholesterolemia, unspecified; I27.20 Pulmonary hypertension, unspecified; E66.09 Other obesity due to excess calories; E11.9 Type 2 diabetes mellitus without complications; I34.0 Nonrheumatic mitral (valve) insufficiency; I42.0 Dilated cardiomyopathy; I07.1 Rheumatic tricuspid insufficiency
CPT/HCPCS: 0241U-QW; 36415; 70450-TC; 71045-TC-FY; 71275-TC; 74174-TC; 80048; 80053; 80061; 82550; 82962; 83735; 83880; 84100; 84443; 84484; 85025; 85610; 85730; 93005; 93010; 93306-TC; 96365; 96372; 96375; 99285-25; G0378; J0131; J1644; Q9967